=== PATIENT | male | born 1945 | race Caucasian/White ===

== ENCOUNTER → 2016-11-30 | Outpatient (CLI) | payer MEDICARE ==
[~2016-11-30] MED LIST: ASCA500 PO; B-COCAP2 PO; B-COTAB18 PO; CEPH500C2 PO; CMD1 PO; COEN1CAP28 PO; EFF375 PO; FRRG PO; GARLTAB3 PO; GREEN TEA PO; HYDR-5688 PO; MISCCAP PO; NAPR1TAB9 PO; OMEG10007 PO; PRISTIQ PO; Q10 PO; RESERVATROL PO; [UNRECOGNIZED DRUG - OTHER] PO; [UNRECOGNIZED DRUG - OTHER] PO
[2016-11-30 09:33] LABS: BASO ABS # 0.06 K/uL (0-0.2); COMPLETE YES; EOS % 4.1 %; IG% 0.8 %; LYMPH % 27.7 %; LYMPH ABS # 1.64 K/uL (1.2-3.4); MEAN CORPUSCULAR HGB CONC 34.5 g/dl (32-36); MEAN PLATELET VOLUME 10.1 fL (7.4-10.4); MONO % 4.9 %; NEUT % 61.5 %; PLATELET COUNT 159 K/uL (130-400); RED BLOOD COUNT 4.83 M/uL (4.7-6.1); WHITE BLOOD COUNT 5.91 K/uL (4.8-10.8)
[2016-11-30 09:49] LABS: ALT/SGPT 27 U/L (12-78); AST/SGOT 20 U/L (15-37); BLOOD UREA NITROGEN 18 mg/dl (7-18); BUN/CREATININE RATIO 18.2 (10-20); CARBON DIOXIDE 28 mmol/L (21-32); CHLORIDE 108 mmol/L (98-107); CHOLESTEROL 166 mg/dl (0-200); CREATININE 0.97 mg/dl (0.60-1.40); GLUCOSE 120 mg/dl (70-99); POTASSIUM 4.2 mmol/L (3.5-5.1); SODIUM 141 mmol/L (136-145); TRIGLYCERIDES 107 mg/dl (0-150); VERY LOW DENSITY LIPOPROT CALC 21 mg/dl
[2016-11-30 09:56] LABS: ESTIMATED AVERAGE GLUCOSE 114 mg/dl; HA1C FLAG Normal (Normal)
[2016-11-30 09:58] LABS: ALB/GLOB RATIO 1.2 (0.9-2); ALKALINE PHOSPHATASE 62 U/L (45-117); HDL CHOLESTEROL 41 mg/dl; LDL CHOLESTEROL CALCULATED 104 mg/dl; TOTAL IRON BINDING CAPACITY 345 mcg/dl (250-450); URIC ACID 5.3 mg/dl (2.6-7.2)
--- NOTE | 2016-12-24 07:11 | CODING QUERY MEDICAL NECESSITY ---
CQSUPPORTING DIAGNOSIS NEEDED A supporting diagnosis is required for the test/procedure performed on this patient in order for us to be reimbursed by the patient's insurance. Please provide a supporting diagnosis for the following test/procedure listed below next to the test name along with your signature. *If there is no additional diagnosis for this patient that would support the following test/procedure please document that below next to the test/procedure. Test(s)/Procedure(s) that require a supporting diagnosis: DOS 11/30/16 PROSTATE SPECIFIC Provider Signature: Date: Thank you Maddie Leon [employer] Once completed, please kindly fax back to [phone] For questions please call [phone]
== END | disposition home or self-care (01) ==
LOC: C.LAB 08:21
PROVIDERS: ATTEND Family Medicine
DX: R73.09 Other abnormal glucose (principal); E55.9 Vitamin D deficiency, unspecified; D51.9 Vitamin B12 deficiency anemia, unspecified; E78.9 Disorder of lipoprotein metabolism, unspecified; R53.83 Other fatigue; N40.0 Benign prostatic hyperplasia without lower urinary tract symptoms

== ENCOUNTER 2017-05-06 10:26 | Observation (INO) | payer MEDICARE ==
[2017-04-18 08:07] VITALS: BMI 28.0
--- NOTE | 2017-04-18 08:42 | PAT Medication Instructions ---
Service Date Apr 18, 2017. Current Home Medication List B-Complex Vitamins (Vitamin B Complex), 1 TAB PO QAM Coenzyme Q10 (Ubidecarenone) (Co Q10), 1 CAP PO QAM Fish Oil ([place]-3), 1 CAP PO Q2D Misc Natural Products (Prostate Therapy Complex), 1 CAP PO QAM Naproxen (Aleve), 220 MG PO Q12 PRN for Pain [Garlic], 1 TAB PO 3XWK [Pristiq], 25 MG PO QAM Medication Instructions For Your Scheduled Surgery - Hold the following medication per your surgeon's instructions: Naproxen (Aleve), 220 MG PO Q12 PRN for Pain Hold the following medications 2 weeks prior to surgery--Hold starting Saturday: Fish Oil ([place]-3), 1 CAP PO Q2D [Garlic], 1 TAB PO 3XWK Coenzyme Q10 (Ubidecarenone) (Co Q10), 1 CAP PO QAM - Hold the following medications the morning of surgery: B-Complex Vitamins (Vitamin B Complex), 1 TAB PO QAM Misc Natural Products (Prostate Therapy Complex), 1 CAP PO QAM - Take the following medications the morning of surgery with a sip of water: [Pristiq], 25 MG PO QAM If you have any questions please call us at [phone] or [phone] or [phone]
[2017-04-18 10:39] LABS: BASO % 0.7 %; BASO ABS # 0.04 K/uL (0-0.2); COMPLETE YES; EOS % 1.4 %; HEMATOCRIT 42.7 % (42-52); IG% 0.5 %; LYMPH % 21.4 %; LYMPH ABS # 1.22 K/uL (1.2-3.4); MEAN CELL VOLUME 86.1 fL (80-100); MEAN CORPUSCULAR HEMOGLOBIN 30.4 pg (25-34); MEAN CORPUSCULAR HGB CONC 35.4 g/dl (32-36); MEAN PLATELET VOLUME 10.5 fL (7.4-10.4); MONO % 4.9 %; NEUT % 71.1 %; PLATELET COUNT 157 K/uL (130-400); RED BLOOD COUNT 4.96 M/uL (4.7-6.1); WHITE BLOOD COUNT 5.71 K/uL (4.8-10.8)
[2017-04-18 10:40] LABS: BUN/CREATININE RATIO 17.4 (10-20); CALCIUM 9.1 mg/dl (8.5-10.1); CREATININE 1.1 mg/dl (0.60-1.40); POTASSIUM 4.6 mmol/L (3.5-5.1)
[2017-05-06] VITALS (7 sets, daily range): BP systolic 138–170; BP diastolic 57–80; PULSE 65–88; TEMP 36.4–37; O2SAT 95–99; Ht 177.8 cm; Wt 85.0 kg
[~2017-05-06] VITALS: Ht 177.8 cm; Wt 85.0 kg
[~2017-05-06 10:26] MED LIST changes: -ASCA500 PO; +ATROPINE SULFATE 0.1 MG/ML 5ML SYR IV PRN; -B-COCAP2 PO; +CEFAZOLIN 2000MG IV PUSH 10 ML IV SCH; -CEPH500C2 PO; -CMD1 PO; -EFF375 PO; +EpHEDrine SULFATE INJ 50 MG/ML AMP IV PRN; -FRRG PO; -GREEN TEA PO; -HYDR-5688 PO; +HYDROmorphone INJ 1 MG/ML SYR IV PRN; +LACTATED RINGER'S 1000ML 1,000 ML IV SCH; +MISSING PHYSICIAN SIGNATURE ON ORDER SCH; +ONDANSETRON INJ 2 MG/ML 2 ML VIAL IV PRN; +PHENYLEPHRINE 100MCG/ML 5ML SYR IV PRN; -Q10 PO; -RESERVATROL PO; -[UNRECOGNIZED DRUG - OTHER] PO; -[UNRECOGNIZED DRUG - OTHER] PO
[2017-05-06] MEDS ORDERED: FENTANYL CITRATE INJ 50 MCG/1 ML 2 ML VIAL ONE ×2 (11:56→14:51)
[2017-05-06] MEDS ORDERED: PROPOFOL IV EMULSION 10 MG/ML 20 ML VIAL IV ONE (11:56)
[2017-05-06] MEDS ORDERED: ONDANSETRON INJ 2 MG/ML 2 ML VIAL ONE (11:56)
[2017-05-06] MEDS ORDERED: NEOSTIGMINE METHYLSULFATE 5 MG/5 ML SYR ONE (11:56)
[2017-05-06] MEDS ORDERED: MIDAZOLAM HCL 1 MG/ML 2ML VIAL ONE (11:56)
[2017-05-06] MEDS ORDERED: LIDOCAINE HCL 2% 2 ML VIAL (20MG/ML) ONE (11:56)
[2017-05-06] MEDS ORDERED: GLYCOPYRROLATE INJ 0.2 MG/ML VIAL ONE (11:56)
[2017-05-06] MEDS ORDERED: DEXAMETHASONE SOD INJ 4 MG/ML VIAL ONE (11:56)
--- NOTE | 2017-05-06 12:31 | History & Physical Bridge Note ---
H&P Re-Evaluation Bridge Note: I have examined the patient, reviewed the History & Physical and in the interval since the performance of the History & Physical I have noted the following changes of clinical significance: No changes noted
[2017-05-06] MEDS ORDERED: LIDOCAINE HCL 1% 20 ML VIAL ONE (12:36)
[2017-05-06] MEDS ORDERED: CEFAZOLIN SOD 1 GM VIAL ONE (12:36)
[2017-05-06] MEDS ORDERED: BUPIVACAINE 0.5 % 5 MG/1 ML MPF 30ML VIAL ONE (12:37)
[2017-05-06] MEDS ORDERED: ROCURONIUM BROMIDE 10 MG/ML 5 ML VIAL IV ONE (13:40)
--- NOTE | 2017-05-06 14:08 | [facility] Operative Report ---
Operative Report Operative Date May 06, 2017. Pre-Operative Diagnosis Right inguinal hernia Post-Operative Diagnosis Right inguinal hernia Procedure(s) Performed Open right inguinal hernia repair Surgeon Dr. Herrera Locomotive Oiler Surgeon(s) Howie Goldstein PA-C Findings very large indirect scrotal hernia Specimens A: Lipoma Anesthesia gen Complication(s) None Disposition Recovery Room / PACU I attest to the content of the Intraoperative Record and any orders documented therein. Any exceptions are noted below.
[2017-05-06] MEDS ORDERED: HYDROCODONE/ACETAMOPHEN 5/325MG TAB PO PRN (14:15)
[2017-05-06] MEDS ORDERED: MoRPHine SULFATE 2 MG/ML CARP IV PRN (14:15)
[2017-05-06] MEDS ORDERED: MoRPHine SULFATE 4 MG/ML 1 ML CARP\\VIAL IV PRN (14:15)
[2017-05-06] MEDS ORDERED: PROMETHAZINE HCL INJ 25 MG in SODIUM CHLORIDE 0.9% 50ML 50 ML IV PRN (14:15)
[2017-05-06] MEDS ORDERED: ONDANSETRON INJ 2 MG/ML 2 ML VIAL IV PRN (14:15)
--- NOTE | 2017-05-06 14:25 | OPERATIVE REPORT ---
DATE OF OPERATION: 05/06/2017 NAME OF OPERATION: Open right inguinal hernia repair. PREOPERATIVE DIAGNOSIS: Large right inguinal hernia. POSTOPERATIVE DIAGNOSIS: Same with indirect defect. STAFF SURGEON: Dr. Willy Herrera. NICKEL PLATER: Malcom Goldstein PA-C ANESTHESIA: General. DESCRIPTION OF PROCEDURE: The patient was brought into the operating room and placed on the operating table in the supine position. Guzman catheter was placed. Orogastric tube was placed. His lower abdomen was prepped and draped in the usual fashion. The patient had a large scrotal hernia, which actually reduced when supine and under anesthesia. 0.5% plain Marcaine was used to anesthetize the skin and subcutaneous tissue and also the deep tissue at the end of the procedure. Incision was made parallel to the inguinal ligament, carrying dissection down, identifying the external oblique fibers, incising them along their length to the external ring and mobilizing the cord structures. The patient had a very large thick walled chronic hernia sac, which went down into the scrotum. This was dissected free and transected. It was then oversewn using 2-0 Ethibond suture and then reduced. He also had a large lipoma of the cord, which was excised and ligated using 2-0 silk suture. The internal ring was then reinforced using a large mesh plug, secured to surrounding tissue using 2-0 Ethibond suture, then a large mesh patch placed around the cord structures into the floor of the canal, secured to surrounding tissue using 2-0 Ethibond suture. The external oblique fibers were closed over the mesh and around the cord structures using 2-0 Ethibond suture. The site was anesthetized using 0.5% plain Marcaine and then the subcutaneous tissue reapproximated using 2-0 plain catgut suture and then the skin reapproximated using 4-0 nylon and Steri-Strips. Dressing applied and the patient transferred to the recovery room in stable condition. Plan was to remove the Guzman catheter prior to going up to the regular nursing floor. I attest to the content of the Intraoperative Record and any orders documented therein. Any exception s are noted below.
--- NOTE | 2017-05-06 14:43 | Anesthesiology Progress Note ---
Anesthesia Post Op Note Date & Time May 06, 2017 at 14:43 Vital Signs Pain Intensity: 0 Vital Signs Past 12 Hours Date Time Temp Pulse Resp B/P (MAP) Pulse Ox O2 Delivery O2 Flow Rate FiO2 05/06/17 14:20 54 16 157/77 100 Oxymask 10 05/06/17 14:10 36.9 70 16 156/74 99 Oxymask 10 05/06/17 10:47 37 65 18 143/66 (91) 97 Room Air Notes Mental Status: alert / awake / arousable, participated in evaluation Pt Amnestic to Procedure: Yes Nausea / Vomiting: adequately controlled Pain: adequately controlled Airway Patency, RR, SpO2: stable & adequate BP & HR: stable & adequate Hydration State: stable & adequate Anesthetic Complications: no major complications apparent
[2017-05-06] MEDS: FENTANYL CITRATE INJ 50 MCG/1 ML 2 ML VIAL IV PRN ×3 (14:52→15:03)
--- NOTE | 2017-05-06 14:54 | Discharge Instructions ---
Discharge Instructions Date of Service May 06, 2017. Admission Reason for Admission: Right Inguinal Hernia Discharge Discharge Diagnosis / Problem: Rt inguinal hernia Discharge Goals Goal(s): Decrease discomfort, Improve function, Improve disease control Activity Recommendations Activity Limitations: as noted below Lifting Limitations: no more than 25 pounds Exercise/Sports Limitations: until after follow-up appointment May Resume Sexual Activity: after follow-up appointment Shower/Bathe: tomorrow Driving or Machine Use: wait 4-5 days SPECIAL CARE INSTRUCTIONS: * Cover incisions and change daily for comfort/drainage. * Leave steri strips in place * May use ibuprofen for pain as tolerated. * Expect some swelling and bruising. Call your doctor if: * Temperature above 101 degrees * Pain not relieved by pain medicine ordered * There is increased drainage or redness from any incision * You have any unanswered questions or concerns [phone]. FOLLOW UP VISIT: If not already scheduled, please call the office for a follow-up visit. for next week- some suture removal OFFICE PHONE NUMBER: Dr. Herrera Office . Current Hospital Diet Patient's current hospital diet: Regular Diet Discharge Diet Recommended Diet: Regular Diet Procedures Procedures Performed: Open right inguinal hernia repair Pending Studies Studies pending at discharge: no Medical Emergencies . Who to Call and When: Medical Emergencies: If at any time you feel your situation is an emergency, please call 911 immediately. . Non-Emergent Contact Non-Emergency issues call your: Primary Care Provider, Surgeon . "Provider Documentation" section prepared by Willy Herrera. . VTE Core Measure Inpt VTE Proph given/why not?: SCD's
[2017-05-06] MEDS ORDERED: IV FLUIDS COMPLETED PRN (15:00)
[2017-05-06] MEDS ORDERED: PROMETHAZINE HCL INJ 12.5 MG in SODIUM CHLORIDE 0.9% 50ML 50 ML IV PRN (15:15)
[2017-05-06] MEDS ORDERED: LACTATED RINGER'S 1000ML 1,000 ML IV SCH (16:30)
[2017-05-06] MEDS: CEFAZOLIN IV 2,000 MG in SYRINGE 0 ML IV SCH ×2 (18:28→23:30)
[2017-05-06] MEDS ORDERED: COUGH DROP (SUGAR FREE) LOZ 24 LOZ/1 BOX PO PRN (18:45)
[2017-05-06] MEDS ORDERED: NURSING DECISION MEDICATION ORDER SCH (18:45)
[2017-05-06] MEDS ORDERED: HydrALAZINE HCL 20 MG/ML VIAL IV. PRN (19:00)
[2017-05-06] MEDS ORDERED: ZOLPIDEM TARTRATE 5 MG TAB PO PRN (19:00)
--- NOTE | 2017-05-06 19:01 | Medical Consult ---
Consultation Date of Consultation: May 06, 2017. Attending Physician: Willy Herrera M.D. Reason for Consultation: Medical management History of Present Illness This is a 72 y/o male with a history of BPH, anxiety, depression, and insomnia who presents s/p open right inguinal hernia repair with Dr. Herrera on 05/06 for medical management. The patient reports feeling well postop with minimal soreness in the right inguinal area. He reports eating and urinating well postoperatively. He has not yet passed gas or had a bowel movement. He states that he typically takes Ambien 5 mg at nighttime for his insomnia and is requesting to receive this in the hospital. The patient denies fevers, chills, sweats, chest pain, palpitations, claudication, cough, wheezing, shortness of breath, nausea, vomiting, abdominal pain, dysuria, hematuria, urinary retention , paralysis, weakness, numbness and tingling. Past Medical/Surgical History BPH Anxiety Depression Insomnia Family History Non-contributory Social History Smoking Status: Former Smoker (quit 37 years ago) Smokeless Tobacco Use: No Alcohol Use: socially (wine with dinner) Drug Use: none Marital Status: Housing Status: lives with family (son and daughter in law) Occupation Status: retired Allergies Coded Allergies: Iodine (Verified Allergy, Severe, THROAT SWELLING, HIVES, 05/06/17) Shellfish (Verified Allergy, Severe, ANAPHYLACTIC SHOCK, HIVES,SWELLING, 05/06/17) Apple (Verified Allergy, Intermediate, HIVES, 05/06/17) Castañeda (Verified Allergy, Intermediate, HIVES, 05/06/17) [place] (Verified Allergy, Intermediate, HIVES, 05/06/17) Oxycodone (Verified Adverse Reaction, Unknown, NAUSEA/VOMITING, 05/06/17) Current Inpatient Medications Current Inpatient Medications Medications (Trade) Dose Ordered Sig/Rfances Route Start Time Stop Time Status Last Admin Dose Admin Lactated Ringer's 1,000 ml @ 15 mls/hr Q24H IV 05/06/17 06:00 05/07/17 05:59 Lactated Ringer's 1,000 ml @ 50 mls/hr Q20H IV 05/06/17 16:30 05/06/17 20:00 05/06/17 16:35 50 MLS/HR Cefazolin Sodium 2000 mg/Syringe 10 ml @ 2.5 mls/min Q6 IV 05/06/17 18:00 05/07/17 12:03 05/06/17 18:28 2.5 MLS/MIN Acetaminophen/ Hydrocodone Bitart ([place] 5/325 Tab) 1 tab Q4 PRN PO 05/06/17 14:15 05/20/17 14:14 Acetaminophen/ Hydrocodone Bitart ([place] 5/325 Tab) 2 tab Q4 PRN PO 05/06/17 14:15 05/20/17 14:14 Morphine Sulfate (MoRPHine SULFATE INJ) 2 mg Q4H PRN IV 05/06/17 14:15 05/20/17 14:14 Morphine Sulfate (MoRPHine SULFATE INJ) 4 mg Q4H PRN IV 05/06/17 14:15 05/20/17 14:14 Promethazine HCl 25 mg/Sodium Chloride 51 ml @ 204 mls/hr Q6H PRN IV 05/06/17 14:15 06/05/17 14:14 Senna/Docusate Sodium (Senokot S Tab) 1 tab BID PO 05/06/17 21:00 06/05/17 20:59 Magnesium Hydroxide (Milk Of Magnesia Susp) 30 ml BID PO 05/06/17 21:00 06/05/17 20:59 Ondansetron HCl (Zofran Inj) 4 mg Q6H PRN IV 05/06/17 14:15 06/05/17 14:14 Miscellaneous (Iv Fluids Completed) 1 ea PRN PRN N/A 05/06/17 15:00 05/06/18 14:59 Promethazine HCl 12.5 mg/Sodium Chloride 50.5 ml @ 204 mls/hr Q6H PRN IV 05/06/17 15:15 06/05/17 15:14 Menthol (Nice Emanuel) 1 emanuel PRN PRN PO 05/06/17 18:45 06/05/17 18:44 05/06/17 18:52 1 EMANUEL Review of Systems See HPI for pertinent positives and negatives. All other systems reviewed and negative. Physical Exam Date Time Temp Pulse Resp B/P (MAP) Pulse Ox O2 Delivery O2 Flow Rate FiO2 05/06/17 18:52 36.8 88 18 169/80 (109) 97 Nasal Cannula 05/06/17 17:32 36.6 74 18 157/77 (103) 96 Room Air 05/06/17 16:32 36.7 71 18 169/57 (94) 99 Room Air 05/06/17 16:00 36.4 66 16 170/73 (105) 97 Room Air 05/06/17 15:30 36.6 75 16 164/79 (107) 95 Room Air 05/06/17 15:30 36.6 75 16 164/79 95 Room Air 05/06/17 15:10 36.4 72 16 151/72 97 Room Air 05/06/17 15:00 36.4 56 16 146/74 96 Room Air 05/06/17 14:50 71 16 151/76 96 Room Air 05/06/17 14:40 60 16 147/75 97 Room Air 05/06/17 14:30 56 16 145/76 100 Oxymask 10 05/06/17 14:20 54 16 157/77 100 Oxymask 10 05/06/17 14:10 36.9 70 16 156/74 99 Oxymask 10 05/06/17 10:47 37 65 18 143/66 (91) 97 Room Air General appearance: Well-developed, well-nourished, no apparent distress Head: Normocephalic, atraumatic Eyes: Normal inspection, PERRL, EOMI ENT: Normal ENT inspection, hearing grossly normal, pharynx normal Neck: Supple, no JVD, trachea midline Respiratory/Chest: Lungs clear to auscultation, normal breath sounds, no respiratory distress Cardiovascular: Regular rate & rhythm, no gallop, no murmur Abdomen/GI: +Right inguinal area covered in gauze. Lower quadrants TTP. Normal bowel sounds, soft Extremities/Musculoskeletal: Normal inspection, no calf tenderness, no pedal edema Neurological/Psych: +Depressed affect. Alert, oriented x 3 Skin: Normal color, warm/dry, no rash Assessment & Plan 72 y/o male with a history of BPH, anxiety, depression, and insomnia who presents s/p open right inguinal hernia repair with Dr. Herrera on 05/06 for medical management. S/p open right inguinal hernia repair--POD #0 -Pain management, DVT prophylaxis, and PT/OT as per primary team BPH -Pt takes super beta prostate supplement -Urinating without difficulty postop after Guzman removed Anxiety, depression, insomnia--pt states that he has lost 4 family members, including his , in the last year -Continue Pristiq 25 mg PO qd. This is non-formulary, pt has this with him -Ambien 5 mg PO hs prn insomnia Elevated blood pressure--denies h/o HTN, BP typically well controlled -Cover with hydralazine 10 mg IV q6h prn SBP >180 Thank you for this consultation. We will continue to follow. i personally examined pt and verified all maldonado points w Melissa Reza PAC a bit of pain - nothing terrible but thinking it's probably time to ask for pain meds no other acute complaints vitals noted nad breathing unlabored elevated BP - follow abdominal pain post op - pain meds as ordered by surgery insomnia - chronically takes ambien - and was quite insistent about making sure he had it- so it has been ordered, however cautioned him to wait at least ~30- 60mins after pain meds before asking for ambien to ensure pain meds don't cause synergistic sedation
[2017-05-06 19:16] LABS: MEAN CELL VOLUME 87.1 fL (80-100); MEAN CORPUSCULAR HEMOGLOBIN 29.7 pg (25-34); MEAN CORPUSCULAR HGB CONC 34.1 g/dl (32-36); MEAN PLATELET VOLUME 10.1 fL (7.4-10.4); PLATELET COUNT 148 K/uL (130-400); RED BLOOD COUNT 5.05 M/uL (4.7-6.1); WHITE BLOOD COUNT 7.69 K/uL (4.8-10.8)
[2017-05-06 19:41] LABS: BUN/CREATININE RATIO 11.7 (10-20); CALCIUM 8.7 mg/dl (8.5-10.1); CREATININE 1.14 mg/dl (0.60-1.40); POTASSIUM 4.4 mmol/L (3.5-5.1)
[2017-05-06] MEDS ORDERED: HYDROCODONE/ACETAMOPHEN 5/325MG TAB PO ONE (20:10)
[2017-05-06] MEDS: MAGNESIUM HYDROXIDE SUSP 30 ML UDC PO SCH (21:00)
[2017-05-06] MEDS: DOCUSATE SODIUM/SENNA 50/8.6MG TAB PO SCH (21:02)
[2017-05-07] MEDS: HYDROCODONE/ACETAMOPHEN 5/325MG TAB PO PRN ×2 (03:45→09:23)
[2017-05-07 03:47] VITALS: BP 130/70; PULSE 59; TEMP 36.5; O2SAT 98
[2017-05-07] MEDS ORDERED: HYDR-5688 PO (05:22)
[2017-05-07] MEDS ORDERED: CEPH500C2 PO (05:22)
[2017-05-07] MEDS: CEFAZOLIN IV 2,000 MG in SYRINGE 0 ML IV SCH (05:46)
[2017-05-07 07:05] VITALS: BP 145/69; PULSE 70; TEMP 36.8; O2SAT 99
--- NOTE | 2017-05-07 07:12 | DISCHARGE SUMMARY ---
PRINCIPAL DIAGNOSIS: Large right inguinal hernia. PROCEDURES: The patient underwent open right inguinal hernia repair. HISTORY OF PRESENT ILLNESS: The patient is a 72-year-old male who has had progressive increase in size of a right inguinal hernia. HOSPITAL COURSE: The patient was brought in the hospital on 05/06/2017 where he underwent elective open right inguinal hernia repair. He had a very large right indirect hernia sac extending into the scrotum. He did very well with the operation and has done well overnight with minimal pain and is felt stable for discharge home today. He will be seen in the surgical clinic within 1 week.
[2017-05-07] MEDS: MAGNESIUM HYDROXIDE SUSP 30 ML UDC PO SCH (07:42)
[2017-05-07 08:11] VITALS: BP 145/69; PULSE 70; TEMP 36.8; O2SAT 99
[2017-05-07] MEDS: DOCUSATE SODIUM/SENNA 50/8.6MG TAB PO SCH (08:41)
== END 2017-05-07 10:30 | disposition home or self-care (01) ==
LOC: C.ACU 10:26 → C.MSW 10:35 → ENRESERV 15:08
PROVIDERS: ADMIT Surgery; ATTEND Surgery
DX: K40.90 Unilateral inguinal hernia, without obstruction or gangrene, not specified as recurrent (principal); M19.90 Unspecified osteoarthritis, unspecified site; Z85.828 Personal history of other malignant neoplasm of skin; Z96.642 Presence of left artificial hip joint

== ENCOUNTER → 2017-10-22 | Outpatient (CLI) | payer MEDICARE ==
[~2017-10-22] MED LIST changes: -ATROPINE SULFATE 0.1 MG/ML 5ML SYR IV PRN; -CEFAZOLIN 2000MG IV PUSH 10 ML IV SCH; +CEPH500C2 PO; -EpHEDrine SULFATE INJ 50 MG/ML AMP IV PRN; +HYDR-5688 PO; -HYDROmorphone INJ 1 MG/ML SYR IV PRN; -LACTATED RINGER'S 1000ML 1,000 ML IV SCH; -MISSING PHYSICIAN SIGNATURE ON ORDER SCH; -ONDANSETRON INJ 2 MG/ML 2 ML VIAL IV PRN; -PHENYLEPHRINE 100MCG/ML 5ML SYR IV PRN
[2017-10-22 09:33] LABS: BASO % 0.9 %; BASO ABS # 0.04 K/uL (0-0.2); EOS % 2.6 %; EOS ABS # 0.12 K/uL (0-0.5); HEMOGLOBIN 14.4 g/dL (14.0-18.0); IG# 0.04 K/uL (0.00-0.02); LYMPH % 34.3 %; LYMPH ABS # 1.58 K/uL (1.2-3.4); MEAN CELL VOLUME 85.7 fL (80-100); MEAN CORPUSCULAR HEMOGLOBIN 29.4 pg (25-34); MEAN CORPUSCULAR HGB CONC 34.3 g/dl (32-36); MEAN PLATELET VOLUME 10.1 fL (7.4-10.4); MONO % 6.5 %; NEUT % 54.8 %; NEUT ABS # 2.52 K/uL (1.4-6.5); PLATELET COUNT 113 K/uL (130-400); RED CELL DISTRIBUTION WIDTH CV 13.4 % (11.5-14.5); RED CELL DISTRIBUTION WIDTH SD 42.1 fL (36.4-46.3)
[2017-10-22 09:41] LABS: HEMOGLOBIN A1C 6.2 % (4.5-5.6)
[2017-10-22 09:46] LABS: ALBUMIN 4.1 gm/dl (3.4-5.0); ALT/SGPT 24 U/L (12-78); AST/SGOT 16 U/L (15-37); BLOOD UREA NITROGEN 15 mg/dl (7-18); CALCIUM 8.6 mg/dl (8.5-10.1); CARBON DIOXIDE 30 mmol/L (21-32); CHOLESTEROL 165 mg/dl (0-200); CREATININE 0.96 mg/dl (0.60-1.40); GLUCOSE 132 mg/dl (70-99); SODIUM 141 mmol/L (136-145); TRANSFERRIN 302 mg/dl (200-360); URIC ACID 4.8 mg/dl (2.6-7.2)
[2017-10-22 09:54] LABS: ALKALINE PHOSPHATASE 72 U/L (45-117); LDL CHOLESTEROL CALCULATED 98 mg/dl
== END | disposition home or self-care (01) ==
LOC: C.LAB 07:41
PROVIDERS: ATTEND Family Medicine
DX: E88.81 Metabolic syndrome and other insulin resistance (principal); E55.9 Vitamin D deficiency, unspecified; D51.9 Vitamin B12 deficiency anemia, unspecified; E78.9 Disorder of lipoprotein metabolism, unspecified; R53.83 Other fatigue

== ENCOUNTER 2018-10-13 12:16 | Inpatient (IN) ==
[2018-10-13] MEDS ORDERED: PROMETHAZINE 25 MG/51 ML BAG IV STA (12:37)
[2018-10-13] MEDS ORDERED: HYDROmorphone INJ 0.5 MG/0.5 ML SYR IV STA (12:37)
[2018-10-13] MEDS ORDERED: SODIUM CHLORIDE 0.9% 500 ML IV SCH (12:45)
[2018-10-13 13:19] LABS: Eosinophils # (auto) 0.04 K/uL (0-0.5); Eosinophils % (auto) 0.6 %; Hematocrit (blood only) 32.1 % (42-52); Hemoglobin 10.9 g/dL (14.0-18.0); Immature Granulocytes # (auto) 0.01 K/uL (0.00-0.02); Immature Granulocytes % (auto) 0.2 %; Lymphocytes # (auto) 0.71 K/uL (1.2-3.4); Lymphocytes % (auto) 10.7 %; Mean Corpuscular Volume 83.6 fL (80-100); Mean Platelet Volume 10.5 fL (7.4-10.4); Monocytes # (auto) 0.07 K/uL (0.11-0.59); Monocytes % (auto) 1.1 %; Neutrophils % (auto) 87.4 %; Platelet Count 157 K/uL (130-400); RDW Coefficient of Variation 13.2 % (11.5-14.5); Red Blood Count 3.84 M/uL (4.7-6.1); White Blood Count 6.63 K/uL (4.8-10.8)
[2018-10-13] MEDS: SODIUM CHLORIDE 0.9% 1000ML 1,000 ML IV SCH (13:21)
[2018-10-13 13:39] LABS: Albumin Level 3.2 gm/dl (3.4-5.0); BUN Creatinine Ratio 23.2 (10-20); Calcium 8.7 mg/dl (8.5-10.1); Creatinine Clr Calc Pharmacy 108.7 ml/min; Est GFR (African American) 117.2; Est GFR (Non-African American) 101.1; Potassium 3.1 mmol/L (3.5-5.1)
[2018-10-13 13:42] LABS: Albumin Globulin Ratio 0.9 (0.9-2); Bilirubin,Total 0.9 mg/dl (0.2-1); Globulin 3.7 gm/dl (2.5-4.0); Total Protein 6.9 gm/dl (6.4-8.2)
[2018-10-13] MEDS ORDERED: DiphenhydrAMINE HCL 50 MG/ML VIAL IV STA (14:28)
[2018-10-13] MEDS ORDERED: DiphenhydrAMINE HCL 50 MG/ML VIAL ONE (14:28)
[2018-10-13] MEDS ORDERED: IOVERSOL 100ml IV PRN (14:35)
--- NOTE | 2018-10-13 15:02 | CT Scan Report ---
CT abd pelvis IV con only CLINICAL HISTORY: pancreatic CA, vomiting, ?duodenal obs COMPARISON STUDY: 09/14/2018 TECHNIQUE: The patient was scanned in a dynamic helical fashion during intravenous administration of 94 cc of Optiray 320. A dose lowering technique was utilized adhering to the principles of ALARA. CT DOSE: 648.44 mGycm FINDINGS: Lower chest: There are partially visualized right upper and middle lobe airspace opacities, suspiciou s for a pneumonia. Liver: No focal hepatic masses are visualized. There is no significant ductal dilatation. There is eq uivocal hepatic cirrhosis. The portal vein appears patent. Gallbladder: The gallbladder is distended. Multiple calculi are visualized. Spleen: The spleen is borderline enlarged. There are perisplenic and perigastric varices present. Pancreas: There is a 6 cm pancreatic tail mass versus massively dilated duct secondary to a more prox imal pancreatic lesion. There is splenic vein occlusion. Adrenal glands: Unremarkable. Kidneys: There is symmetric renal cortical enhancement. The kidneys are normal in size without hydron ephrosis. Bowel: There is marked gastric distention. There is a soft soft tissue thickening at the level the ga stric antrum/duodenal bulb resulting in gastric outlet obstruction. There is an 11 cm hypodense mass/ fluid collection, located inferior to the stomach. This appears solid the prior study, and therefore this may represent necrotic neoplasm. There is mild nonspecific colonic wall thickening. Peritoneum: There is low volume ascites. There are multiple mildly enlarged mesenteric lymph nodes. T here is an anterior midline spiculated mesenteric mass measuring 31 mm. This appears larger on the pr ior study and is consistent with metastatic disease. Vasculature: The abdominal aorta is normal in course and caliber. There is splenic vein occlusion upp er abdominal varices. Adenopathy: There are multiple enlarged mesenteric lymph nodes. Pelvic viscera: The prostate is enlarged. There are postsurgical changes of a left hip arthroplasty. There are postsurgical changes of prior inguinal hernia repairs. Skeletal structures: No destructive osseous lesions are seen. IMPRESSION: 1. Soft tissue thickening/mass at the level of the gastric antrum/duodenal bulb with suspected second fab gastric outlet obstruction 2. 6 cm hypodense pancreatic body and tail, consistent with a mass or ductal dilatation secondary to a more proximal lesion. 3. 11 cm hypodense mass/fluid collection abutting the undersurface of the stomach. This was previousl y suspected to represent a hematoma. This therefore may represent a liquefied hematoma. 4. 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 Low volume ascites 6. Cholelithiasis. Distended gallbladder 7. Enlarged mesenteric lymph nodes. Anterior mesenteric/omental 31 mm mass consistent with metastatic disease 8. Partially visualized right middle and upper lobe pulmonary airspace opacity suspicious for pneumon ia Electronically signed by: James Ann M.D. 10/13/2018 3:01 PM
[2018-10-13] MEDS ORDERED: BENZOCAINE/TETRACAIN/BUTAM CAN 200 APPLN/20 GM CAN EXT PRN (15:44)
[2018-10-13] MEDS ORDERED: BENZOCAIN/TETRACA/BUTAM SPRAY 200 APPLN/20 GM SPRY EXT ONE (16:01)
--- NOTE | 2018-10-13 16:29 | Emergency Department Note ---
Entered by Ashley Jaquez acting as a scribe for Ruifna Rock MD History of Present Illness General Chief complaint: Dehydration Stated complaint: DEHYDRATED, CANT KEEP FOOD DOWN Source: patient and family History of Present Illness Provider complaint: vomiting Onset (ago): day(s) 3 Location: left and right Pain Consistency: + intermittent Maximum Pain Intensity: 5 Quality: + other (vomiting) Associated symptoms: + denies other symptoms (denies abdominal pain and diarrhea, blood in vomit); no chest pain, no fever/chills and no shortness of breath The patient is a 73 year old male who presents to the Emergency Room with complaints of intermittent vomiting over the last 3 days. Per family, the patient did not have blood in his vomit. He also reports having abdominal pain but denies having diarrhea. He states that he had chemotherapy 3 days ago and had home chemotherapy yesterday. He states that he has been unable to keep fluids down. He denies being febrile or having chest pain or shortness of breath. The patient states that he follows with Dr. Hammonds. Home Medications Home Medications Medication Instructions Recorded Confirmed Type desvenlafaxine succinate [Pristiq] 25 mg PO HS #0 04/18/17 10/13/18 History alprazolam 0.5 mg tablet 0.5 mg PO DIRECTED tab 09/23/18 10/13/18 History dronabinol 5 mg capsule 5 mg PO BID 09/23/18 10/13/[address] 40 mg granules 40 mg PO BID 09/23/18 10/13/18 History delayed-release for susp in packet docusate sodium 100 mg PO DAILY PRN 10/05/18 10/13/18 History Marijuana 1 dose INHALATION UD PRN 10/07/18 10/13/18 History hydrocodone-acetaminophen [[place]] 1 tab PO Q4H #7 tab 10/08/18 10/13/18 Rx fentanyl 1 patch TOPICAL Q72H 10/13/18 10/13/18 History [id number] [[place]] 12,000 units PO TID 10/13/18 10/13/18 History ondansetron HCl 8 mg PO DIRECTED PRN 10/13/18 10/13/18 History prochlorperazine maleate 10 mg PO Q6 PRN 10/13/18 10/13/18 History Allergies Allergy/AdvReac Type Severity Reaction Status Date / Time iodine Allergy Severe THROAT Verified 10/13/18 12:40 SWELLING, HIVES shellfish derived Allergy Severe ANAPHYLACTIC Verified 10/13/18 12:40 SHOCK, HIVES,SWELLING apple Allergy Intermediate HIVES Verified 10/13/18 12:40 neal Allergy Intermediate HIVES Verified 10/13/18 12:40 peach Allergy Intermediate HIVES Verified 10/13/18 12:40 codeine Allergy Unknown Unverified 10/13/18 14:34 oxycodone AdvReac Unknown FEEL GOOFY Verified 10/13/18 12:40 Past Med/Surg History Medical History Anxiety (Chronic) Depression (Chronic) Pancreatic cancer (Chronic) Anemia Attention deficit disorder (ADD) BPH (benign prostatic hyperplasia) Cancer PANCREATIC CANCER SKIN CANCER GERD (gastroesophageal reflux disease) Medical marijuana use Osteoarthritis Surgical History H/O hernia repair (Acute) Bilateral inguinal hernia repair H/O Achilles tendon repair (Resolved) Bilateral H/O left knee surgery (Resolved) Related to "muscles torn off the side" H/O nasal septoplasty (Resolved) History of esophagogastroduodenoscopy (EGD) (Resolved) History of left hip replacement (Resolved) History of tonsillectomy (Resolved) S/P surgical removal of pilonidal cyst (Resolved) Status post right partial knee replacement (Resolved) History of colonoscopy History of tooth extraction Hx of vasectomy Nausea and vomiting after administration of anesthetic agent Family History Mother , 97yo Natural with unknown cause Father , 68yo Brain cancer Sister No problems noted. Son No problems noted. Son No problems noted. Son No problems noted. Review of Systems See HPI for pertinent positives & negatives. and A total of 10 systems reviewed and were otherwise negative Physical Exam Vital Signs Vital Signs - 24 hr 10/15/18 04:03 10/15/18 07:50 10/15/18 11:41 Temperature 36.5 C 36.7 C 36.6 C Temperature Source Oral Oral Oral Pulse Rate [Left Finger] 69 74 67 Respiratory Rate 16 18 18 Respiratory Depth Blood Pressure [Left Arm] 144/67 H 130/69 143/79 H Blood Pressure [Right Arm] Blood Pressure Mean [Left Arm] 92 89 100 Blood Pressure Mean [Right Arm] Blood Pressure Position [Left Arm] Blood Pressure Position [Right Arm] Pulse Oximetry 100 98 99 Oxygen Delivery Method Room Air Room Air Room Air 10/15/18 15:58 10/15/18 19:57 10/15/18 23:45 Temperature 36.4 C L 36.7 C 36.7 C Temperature Source Oral Oral Oral Pulse Rate [Left Finger] 67 71 68 Respiratory Rate 18 18 18 Respiratory Depth Normal Blood Pressure [Left Arm] 115/64 Blood Pressure [Right Arm] 126/79 150/80 H Blood Pressure Mean [Left Arm] 81 Blood Pressure Mean [Right Arm] 94 103 Blood Pressure Position [Left Arm] Lying Blood Pressure Position [Right Arm] Lying Lying Pulse Oximetry 100 100 97 Oxygen Delivery Method Room Air Room Air Room Air Vital signs reviewed. General: Cachectic, chronically ill-appearing male, in no significant distress. HEENT: No scleral icterus, PERRLA, neck supple. Dry mucous membranes. Atraumatic. Cardiovascular: Regular rate and rhythm, no extra sounds. Pulmonary: Clear to auscultation bilaterally, normal work of breathing. Abdomen: Soft, mild diffuse tenderness without rebound or guarding, nondistended, positive bowel sounds. No tympany to percussion. Musculoskeletal: Atraumatic, no peripheral edema. Neurologic: Patient awake alert and oriented x 3, full strength in all 4 extremities. Cranial nerves 2 through 12 grossly intact. Skin: Warm, dry, no rash Course 1232: The patient was evaluated in room B4B, and a complete history and physical examination were performed. 1303: I discussed the patient's case with Dr. Arrington-Gastroenterology who stated that the patient was supposed to see him in the office tomorrow. He stated that the patient's pancreatic mass is likely obstructing the duodeum and that he should be admitted and they will likely stent him. 1324: I updated the patient. He will be getting a CT scan. 1543: I updated the patient who verbalized agreement and understanding of the treatment plan. 1544: The nurses will put an NG tube in the patient. 1546: I discussed the patient's case with Dr. Farhat Gar who will evaluate the patient for further management. Consultations Consultation #1: Dr. Arrington-Gastroenterology Time: 13:03 Consultation #2: Dr. Farhat Gar Time: 15:46 Administered Medications Fentanyl (Duragesic) 25 mcg TD Q72H JUANA Stop: 10/27/18 20:59 Last Admin: 10/13/18 21:16 Dose: Not Given Documented by: [id number] Potassium Chloride/Dextrose/Sod Cl (D5w And 1/2nss + 20meq Kcl) 20 meq in 1,000 mls @ 100 mls/hr IV .Q10H JUANA Stop: 11/12/18 18:20 Last Admin: 10/15/18 20:41 Dose: 100 mls/hr Documented by: [id number] Infusion: 10/15/18 20:41 Dose: 100 mls/hr Documented by: [id number] Admin: 10/15/18 11:15 Dose: 100 mls/hr Documented by: [id number] Infusion: 10/15/18 10:02 Dose: 100 mls/hr Documented by: [id number] Admin: 10/15/18 00:02 Dose: 100 mls/hr Documented by: [id number] Infusion: 10/15/18 00:02 Dose: 100 mls/hr Documented by: [id number] Admin: 10/14/18 15:26 Dose: 100 mls/hr Documented by: [id number] Infusion: 10/14/18 15:24 Dose: 100 mls/hr Documented by: [id number] Admin: 10/14/18 05:24 Dose: 100 mls/hr Documented by: [id number] Infusion: 10/14/18 05:24 Dose: 100 mls/hr Documented by: [id number] Admin: 10/13/18 21:06 Dose: 100 mls/hr Documented by: [id number] Pantoprazole Sodium 40 mg/ (Syringe) 10 mls @ 5 mls/min IV BID JUANA Stop: 11/12/18 20:59 Last Admin: 10/15/18 20:42 Dose: 5 mls/min Documented by: [id number] Admin: 10/15/18 08:50 Dose: 5 mls/min Documented by: [id number] Admin: 10/14/18 20:35 Dose: 5 mls/min Documented by: [id number] Admin: 10/14/18 09:23 Dose: 5 mls/min Documented by: [id number] Admin: 10/13/18 21:07 Dose: 5 mls/min Documented by: [id number] Lorazepam (Ativan) 0.5 mg in 1 mls @ 1 mls/min IV Q4H PRN PRN Reason: Anxiety Stop: 11/12/18 18:20 Last Admin: 10/16/18 03:02 Dose: 1 mls/min Documented by: [id number] Admin: 10/15/18 22:26 Dose: 1 mls/min Documented by: [id number] Admin: 10/15/18 18:20 Dose: 1 mls/min Documented by: [id number] Admin: 10/15/18 14:20 Dose: 1 mls/min Documented by: [id number] Admin: 10/14/18 22:37 Dose: 1 mls/min Documented by: [id number] Admin: 10/14/18 13:18 Dose: 1 mls/min Documented by: [id number] Admin: 10/14/18 01:05 Dose: 1 mls/min Documented by: [id number] Promethazine HCl 12.5 mg/ (Sodium Chloride) 50.5 mls @ 202 mls/hr IV Q6H PRN PRN Reason: Nausea And Vomiting Stop: 11/13/18 04:02 Last Infusion: 10/14/18 20:38 Dose: 0 mls/hr Documented by: [id number] Admin: 10/14/18 20:13 Dose: 202 mls/hr Documented by: [id number] Infusion: 10/14/18 06:30 Dose: 0 mls/hr Documented by: [id number] Admin: 10/14/18 06:13 Dose: 202 mls/hr Documented by: [id number] Ioversol (Optiray 320 100ml) 94 ml IV ONCE PRN PRN Reason: Interaction Checking Stop: 10/17/18 14:34 Last Admin: 10/13/18 14:36 Dose: 94 ml Documented by: [id number] Miscellaneous (Fentanyl Patch Check Placement) 1 ea N/A QS JUANA Stop: 11/13/18 00:00 Last Admin: 10/16/18 00:58 Dose: Not Given Documented by: [id number] Admin: 10/15/18 15:43 Dose: Not Given Documented by: [id number] Admin: 10/15/18 07:03 Dose: Not Given Documented by: [id number] Admin: 10/14/18 23:47 Dose: Not Given Documented by: [id number] Admin: 10/14/18 15:30 Dose: Not Given Documented by: [id number] Admin: 10/14/18 07:36 Dose: Not Given Documented by: [id number] Admin: 10/14/18 00:22 Dose: Not Given Documented by: [id number] Morphine Sulfate (Morphine Sulfate) 1 mg IV Q4H PRN PRN Reason: Pain Stop: 10/27/18 18:20 Last Admin: 10/15/18 21:45 Dose: 1 mg Documented by: [id number] Admin: 10/15/18 02:20 Dose: 1 mg Documented by: [id number] Admin: 10/14/18 20:17 Dose: 1 mg Documented by: [id number] Admin: 10/14/18 03:31 Dose: 1 mg Documented by: [id number] Admin: 10/13/18 21:16 Dose: 1 mg Documented by: [id number] Discontinued Medications Benzocaine/Butamben/Tetracaine HCl (Cetacaine) Confirm Administered Dose 1 appln EXT .STK-MED ONE Stop: 10/13/18 16:02 Last Admin: 10/13/18 16:19 Dose: 1 appln Documented by: [id number] Benzocaine/Butamben/Tetracaine HCl (Cetacaine) 1 appln EXT ONE ONE Stop: 10/15/18 21:04 Last Admin: 10/15/18 22:42 Dose: 1 appln Documented by: [id number] Diphenhydramine HCl (Benadryl) 50 mg IV NOW STA Stop: 10/13/18 14:29 Last Admin: 10/13/18 14:33 Dose: 50 mg Documented by: [id number] Diphenhydramine HCl (Benadryl) Confirm Administered Dose 50 mg .ROUTE .STK-MED ONE Stop: 10/13/18 14:29 Last Admin: 10/13/18 14:34 Dose: Not Given Documented by: [id number] Hydromorphone HCl (Dilaudid) 0.5 mg IV NOW STA Stop: 10/13/18 12:38 Last Admin: 10/13/18 13:21 Dose: 0.5 mg Documented by: [id number] Promethazine HCl (Phenergan) 25 mg in 51 mls @ 204 mls/hr IV NOW STA Stop: 10/13/18 12:51 Last Infusion: 10/13/18 14:02 Dose: 0 mls/hr Documented by: [id number] Admin: 10/13/18 13:20 Dose: 204 mls/hr Documented by: [id number] Sodium Chloride (Nss 1000ml) 1,000 mls @ 150 mls/hr IV .Q6H40M JUANA Stop: 11/12/18 12:44 Last Admin: 10/14/18 07:26 Dose: Not Given Documented by: [id number] Infusion: 10/13/18 18:46 Dose: 0 mls/hr Documented by: [id number] Admin: 10/13/18 13:21 Dose: 150 mls/hr Documented by: [id number] Sodium Chloride (Nss) 500 mls @ 999 mls/hr IV .Q31M JUANA Stop: 10/13/18 13:15 Last Infusion: 10/13/18 14:17 Dose: 0 mls/hr Documented by: [id number] Admin: 10/13/18 13:27 Dose: 999 mls/hr Documented by: [id number] Potassium Acetate 20 meq/ (Sodium Chloride) 110 mls @ 55 mls/hr IV Q2H JUANA Stop: 10/14/18 00:44 Last Infusion: 10/14/18 01:50 Dose: 0 mls/hr Documented by: [id number] Admin: 10/13/18 23:50 Dose: 55 mls/hr Documented by: [id number] Infusion: 10/13/18 23:06 Dose: 55 mls/hr Documented by: [id number] Admin: 10/13/18 21:06 Dose: 55 mls/hr Documented by: [id number] Potassium Phosphate 21 mmol/ (Sodium Chloride) 507 mls @ 127 mls/hr IV 0845 ONE Stop: 10/14/18 12:44 Last Infusion: 10/14/18 13:26 Dose: 0 mls/hr Documented by: [id number] Admin: 10/14/18 09:23 Dose: 127 mls/hr Documented by: [id number] Multivitamins 10 ml/ Thiamine HCl 100 mg/ Folic Acid 1 mg/Sodium Chloride 1,011.2 mls @ 1,011.2 mls/hr IV .Q1H JUANA Stop: 10/14/18 14:29 Last Infusion: 10/14/18 15:27 Dose: 0 mls/hr Documented by: [id number] Admin: 10/14/18 13:53 Dose: 999 mls/hr Documented by: [id number] Medical Decision Making Differential Diagnosis Differentials include chemotherapeutic effect, bowel obstruction, biliary obstruction, perforated viscus, viral illness, and electrolyte abnormality. Medical Records Attestation: I reviewed the patient's medical records. Home Medications Current Medication List: was personally reviewed by me Laboratory Data Attestation: I reviewed the patient's lab results. Result diagrams: 10/14/18 06:43 10/14/18 19:14 Lab Results 10/13/18 10/13/18 10/14/18 Range/Units 13:05 13:05 06:43 WBC 6.63 5.44 (4.8-10.8) K/uL RBC 3.84 L 3.76 L (4.7-6.1) M/uL Hgb 10.9 L 10.7 L (14.0-18.0) g/dL Hct 32.1 L 31.6 L (42-52) % MCV 83.6 84.0 (80-100) fL MCH 28.4 28.5 (25-34) pg MCHC 34.0 33.9 (32-36) g/dL RDW Std Deviation 40.0 40.0 (36.4-46.3) fL RDW Coeff of Sal 13.2 13.2 (11.5-14.5) % Plt Count 157 130 (130-400) K/uL MPV 10.5 H 10.6 H (7.4-10.4) fL Immature Gran % (Auto) 0.2 0.2 % Neut % (Auto) 87.4 82.2 % Lymph % (Auto) 10.7 13.8 % [place] % (Auto) 1.1 0.7 % Eos % (Auto) 0.6 2.9 % Baso % (Auto) 0.0 0.2 % Immature Gran # (Auto) 0.01 0.01 (0.00-0.02) K/uL Neut # (Auto) 5.80 4.47 (1.4-6.5) K/uL Lymph # (Auto) 0.71 L 0.75 L (1.2-3.4) K/uL [place] # (Auto) 0.07 L 0.04 L (0.11-0.59) K/uL Eos # (Auto) 0.04 0.16 (0-0.5) K/uL Baso # (Auto) 0.00 0.01 (0-0.2) K/uL ABG pH (7.35-7.45) ABG pCO2 (35-46) mmHg ABG pO2 (80-95) mm/Hg ABG HCO3 (19-24) mmol/L ABG O2 Saturation (90-95) % ABG Base Excess (-9-1.8) mEq/L Scott Test (Pos) Barometric Pressure mm/Hg Oxygen Given Sodium 138 (136-145) mmol/L Potassium 3.1 L (3.5-5.1) mmol/L Chloride 102 (98-107) mmol/L Carbon Dioxide 28 (21-32) mmol/L Anion Gap 8.0 (3-11) BUN 14 (7-18) mg/dl Creatinine 0.59 L (0.6-1.4) mg/dl Est Cr Clr Drug Dosing 108.7 ml/min Est GFR ( Amer) 117.2 Est GFR (Non-Af Amer) 101.1 BUN/Creatinine Ratio 23.2 H (10-20) Glucose 132 H (70-99) mg/dl Osmolality (280-300) mOsm/kg Lactate (0.4-2.0) mmol/L Calcium 8.7 (8.5-10.1) mg/dl Phosphorus (2.5-4.9) mg/dl Magnesium (1.8-2.4) mg/dl Total Bilirubin 0.9 (0.2-1) mg/dl Direct Bilirubin (0-0.2) mg/dl AST 21 (15-37) U/L ALT 25 (12-78) U/L Alkaline Phosphatase 136 H (45-117) U/L Total Protein 6.9 (6.4-8.2) gm/dl Albumin 3.2 L (3.4-5.0) gm/dl Globulin 3.7 (2.5-4.0) gm/dl Albumin/Globulin Ratio 0.9 (0.9-2) Lipase 270 (73-393) U/L 10/14/18 10/14/18 10/14/18 Range/Units 06:43 06:43 09:41 WBC (4.8-10.8) K/uL RBC (4.7-6.1) M/uL Hgb (14.0-18.0) g/dL Hct (42-52) % MCV (80-100) fL MCH (25-34) pg MCHC (32-36) g/dL RDW Std Deviation (36.4-46.3) fL RDW Coeff of Sal (11.5-14.5) % Plt Count (130-400) K/uL MPV (7.4-10.4) fL Immature Gran % (Auto) % Neut % (Auto) % Lymph % (Auto) % [place] % (Auto) % Eos % (Auto) % Baso % (Auto) % Immature Gran # (Auto) (0.00-0.02) K/uL Neut # (Auto) (1.4-6.5) K/uL Lymph # (Auto) (1.2-3.4) K/uL [place] # (Auto) (0.11-0.59) K/uL Eos # (Auto) (0-0.5) K/uL Baso # (Auto) (0-0.2) K/uL ABG pH 7.51 H* (7.35-7.45) ABG pCO2 32 L (35-46) mmHg ABG pO2 87 (80-95) mm/Hg ABG HCO3 25 H (19-24) mmol/L ABG O2 Saturation 97.2 H (90-95) % ABG Base Excess 2.3 H (-9-1.8) mEq/L Scott Test Pos (Pos) Barometric Pressure 722.7 mm/Hg Oxygen Given RA Sodium 140 (136-145) mmol/L Potassium 3.4 L (3.5-5.1) mmol/L Chloride 105 (98-107) mmol/L Carbon Dioxide 18 L (21-32) mmol/L Anion Gap 17.0 H (3-11) BUN 12 (7-18) mg/dl Creatinine 0.48 L (0.6-1.4) mg/dl Est Cr Clr Drug Dosing 126.5 ml/min Est GFR ( Amer) 127.6 Est GFR (Non-Af Amer) 110.1 BUN/Creatinine Ratio 24.0 H (10-20) Glucose 142 H (70-99) mg/dl Osmolality (280-300) mOsm/kg Lactate (0.4-2.0) mmol/L Calcium 8.6 (8.5-10.1) mg/dl Phosphorus 2.4 L (2.5-4.9) mg/dl Magnesium 2.1 (1.8-2.4) mg/dl Total Bilirubin 0.7 (0.2-1) mg/dl Direct Bilirubin 0.2 (0-0.2) mg/dl AST 16 (15-37) U/L ALT 23 (12-78) U/L Alkaline Phosphatase 121 H (45-117) U/L Total Protein 6.5 (6.4-8.2) gm/dl Albumin 3.1 L (3.4-5.0) gm/dl Globulin (2.5-4.0) gm/dl Albumin/Globulin Ratio (0.9-2) Lipase 203 (73-393) U/L 10/14/18 10/14/18 10/14/18 Range/Units 09:41 09:41 11:13 WBC (4.8-10.8) K/uL RBC (4.7-6.1) M/uL Hgb (14.0-18.0) g/dL Hct (42-52) % MCV (80-100) fL MCH (25-34) pg MCHC (32-36) g/dL RDW Std Deviation (36.4-46.3) fL RDW Coeff of Sal (11.5-14.5) % Plt Count (130-400) K/uL MPV (7.4-10.4) fL Immature Gran % (Auto) % Neut % (Auto) % Lymph % (Auto) % [place] % (Auto) % Eos % (Auto) % Baso % (Auto) % Immature Gran # (Auto) (0.00-0.02) K/uL Neut # (Auto) (1.4-6.5) K/uL Lymph # (Auto) (1.2-3.4) K/uL [place] # (Auto) (0.11-0.59) K/uL Eos # (Auto) (0-0.5) K/uL Baso # (Auto) (0-0.2) K/uL ABG pH (7.35-7.45) ABG pCO2 (35-46) mmHg ABG pO2 (80-95) mm/Hg ABG HCO3 (19-24) mmol/L ABG O2 Saturation (90-95) % ABG Base Excess (-9-1.8) mEq/L Scott Test (Pos) Barometric Pressure mm/Hg Oxygen Given Sodium 138 (136-145) mmol/L Potassium 3.4 L (3.5-5.1) mmol/L Chloride 104 (98-107) mmol/L Carbon Dioxide 27 (21-32) mmol/L Anion Gap 7.0 (3-11) BUN 10 (7-18) mg/dl Creatinine 0.51 L (0.6-1.4) mg/dl Est Cr Clr Drug Dosing 119.1 ml/min Est GFR ( Amer) 124.5 Est GFR (Non-Af Amer) 107.4 BUN/Creatinine Ratio 19.3 (10-20) Glucose 128 H (70-99) mg/dl Osmolality 288 (280-300) mOsm/kg Lactate 0.9 (0.4-2.0) mmol/L Calcium 8.5 (8.5-10.1) mg/dl Phosphorus (2.5-4.9) mg/dl Magnesium (1.8-2.4) mg/dl Total Bilirubin (0.2-1) mg/dl Direct Bilirubin (0-0.2) mg/dl AST (15-37) U/L ALT (12-78) U/L Alkaline Phosphatase (45-117) U/L Total Protein (6.4-8.2) gm/dl Albumin (3.4-5.0) gm/dl Globulin (2.5-4.0) gm/dl Albumin/Globulin Ratio (0.9-2) Lipase (73-393) U/L 10/14/18 Range/Units 19:14 WBC (4.8-10.8) K/uL RBC (4.7-6.1) M/uL Hgb (14.0-18.0) g/dL Hct (42-52) % MCV (80-100) fL MCH (25-34) pg MCHC (32-36) g/dL RDW Std Deviation (36.4-46.3) fL RDW Coeff of Sal (11.5-14.5) % Plt Count (130-400) K/uL MPV (7.4-10.4) fL Immature Gran % (Auto) % Neut % (Auto) % Lymph % (Auto) % [place] % (Auto) % Eos % (Auto) % Baso % (Auto) % Immature Gran # (Auto) (0.00-0.02) K/uL Neut # (Auto) (1.4-6.5) K/uL Lymph # (Auto) (1.2-3.4) K/uL [place] # (Auto) (0.11-0.59) K/uL Eos # (Auto) (0-0.5) K/uL Baso # (Auto) (0-0.2) K/uL ABG pH (7.35-7.45) ABG pCO2 (35-46) mmHg ABG pO2 (80-95) mm/Hg ABG HCO3 (19-24) mmol/L ABG O2 Saturation (90-95) % ABG Base Excess (-9-1.8) mEq/L Scott Test (Pos) Barometric Pressure mm/Hg Oxygen Given Sodium 139 (136-145) mmol/L Potassium 3.4 L (3.5-5.1) mmol/L Chloride 104 (98-107) mmol/L Carbon Dioxide 27 (21-32) mmol/L Anion Gap 7.0 (3-11) BUN 8 (7-18) mg/dl Creatinine 0.48 L (0.6-1.4) mg/dl Est Cr Clr Drug Dosing 126.5 ml/min Est GFR ( Amer) 127.6 Est GFR (Non-Af Amer) 110.1 BUN/Creatinine Ratio 16.4 (10-20) Glucose 128 H (70-99) mg/dl Osmolality (280-300) mOsm/kg Lactate (0.4-2.0) mmol/L Calcium 8.5 (8.5-10.1) mg/dl Phosphorus (2.5-4.9) mg/dl Magnesium (1.8-2.4) mg/dl Total Bilirubin (0.2-1) mg/dl Direct Bilirubin (0-0.2) mg/dl AST (15-37) U/L ALT (12-78) U/L Alkaline Phosphatase (45-117) U/L Total Protein (6.4-8.2) gm/dl Albumin (3.4-5.0) gm/dl Globulin (2.5-4.0) gm/dl Albumin/Globulin Ratio (0.9-2) Lipase (73-393) U/L Imaging Data Radiologist's Impression: Radiology results as stated below per my review and the radiologist's interpretation: CT abd pelvis IV con only CLINICAL HISTORY: pancreatic CA, vomiting, ?duodenal obs COMPARISON STUDY: 09/14/2018 TECHNIQUE: The patient was scanned in a dynamic helical fashion during intravenous administration of 94 cc of Optiray 320. A dose lowering technique was utilized adhering to the principles of ALARA. CT DOSE: 648.44 mGycm FINDINGS: Lower chest: There are partially visualized right upper and middle lobe airspace opacities, suspicious for a pneumonia. Liver: No focal hepatic masses are visualized. There is no significant ductal dilatation. There is equivocal hepatic cirrhosis. The portal vein appears patent. Gallbladder: The gallbladder is distended. Multiple calculi are visualized. Spleen: The spleen is borderline enlarged. There are perisplenic and perigastric varices present. Pancreas: There is a 6 cm pancreatic tail mass versus massively dilated duct secondary to a more proximal pancreatic lesion. There is splenic vein occlusion. Adrenal glands: Unremarkable. Kidneys: There is symmetric renal cortical enhancement. The kidneys are normal in size without hydronephrosis. Bowel: There is marked gastric distention. There is a soft soft tissue thickening at the level the gastric antrum/duodenal bulb resulting in gastric outlet obstruction. There is an 11 cm hypodense mass/fluid collection, located inferior to the stomach. This appears solid the prior study, and therefore this may represent necrotic neoplasm. There is mild nonspecific colonic wall thickening. Peritoneum: There is low volume ascites. There are multiple mildly enlarged mesenteric lymph nodes. There is an anterior midline spiculated mesenteric mass measuring 31 mm. This appears larger on the prior study and is consistent with metastatic disease. Vasculature: The abdominal aorta is normal in course and caliber. There is splenic vein occlusion upper abdominal varices. Adenopathy: There are multiple enlarged mesenteric lymph nodes. Pelvic viscera: The prostate is enlarged. There are postsurgical changes of a left hip arthroplasty. There are postsurgical changes of prior inguinal hernia repairs. Skeletal structures: No destructive osseous lesions are seen. IMPRESSION: 1. Soft tissue thickening/mass at the level of the gastric antrum/duodenal bulb with suspected secondary gastric outlet obstruction 2. 6 cm hypodense pancreatic body and tail, consistent with a mass or ductal dilatation secondary to a more proximal lesion. 3. 11 cm hypodense mass/fluid collection abutting the undersurface of the stomach. This was previously suspected to represent a hematoma. This therefore may represent a liquefied hematoma. 4. 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 Low volume ascites 6. Cholelithiasis. Distended gallbladder 7. Enlarged mesenteric lymph nodes. Anterior mesenteric/omental 31 mm mass consistent with metastatic disease 8. Partially visualized right middle and upper lobe pulmonary airspace opacity suspicious for pneumonia Electronically signed by: James Ann M.D. 10/13/2018 3:01 PM ECG Data Attestation: I personally reviewed and interpreted this ECG as follows: Indication: abdominal pain Rate (beats per minute): 73 Rhythm: normal sinus Findings: + other (QTC 434); no PAC, no PVC, no ST depression, no ST elevation, no acute ischemic change and no ectopy Blood Pressure Blood Pressure Findings: Normal blood pressure MDM Narrative This patient was evaluated and appeared to be in some discomfort. IV access was obtained and laboratory work was drawn. The patient was given Phenergan 25 mg IV for nausea. Differentials include chemotherapeutic effect, bowel obstruction, biliary obstruction, perforated viscus, viral illness, and electrolyte abnormality. IV hydration was initiated. Patient was hydrated with normal saline solution. CT scan of the abdomen pelvis was performed and there is evidence to suggest perhaps a gastric outlet obstruction. An NG tube was placed with 1500 mL's of fluid returned. Patient was Dr. Arrington believe the discussed with Dr. Arrington gastroenterology. Believes the patient can be seen tomorrow. Patient was discharged home to the care of his . They will return to the ED for worsening of symptoms or any medical concerns. Impression & Plan Gastric outlet obstruction Discharge Plan Visit Data *Final* Discharge Date/Time: 10/13/18 17:51 Chief Complaint: Dehydration Stated Complaint: DEHYDRATED, CANT KEEP FOOD DOWN ED Provider: Rufina Rock Discharge Problem: Gastric outlet obstruction Patient Disposition: Admitted As Inpatient Discharge Instructions Interventions: ED Discharge Assessment Last Done: 10/13/18 17:51 The scribe's documentation has been prepared under my direction and personally reviewed by me in its entirety. I confirm that the note above accurately reflects all work, treatment, procedures, and medical decision making performed by me.
--- NOTE | 2018-10-13 16:47 | History & Physical Report ---
Date of Service October 13, 2018 Assessment & Plan (1) Gastric outlet obstruction: As noted on CT [facility] ED discussed with GI and planning for intervention tomorrow Also noted on CT is splenic vein occlusion, this may need addressed as well NGT placed in ED, will continue NPO (2) Primary adenocarcinoma of body of pancreas: Current chemo pt (3) Constipation: Monitor Will likely need bowel regimen once stable (4) Hypokalemia: Replace and monitor (5) GERD (gastroesophageal reflux disease): Protonix IV (6) Depression: Holding home meds Monitor (7) Anxiety: Holding home meds PRN ativan (8) BPH (benign prostatic hyperplasia): Holding home meds (9) DVT prophylaxis: SCDs Holding rx given procedure tomorrow History of Present Illness Primary Care Provider: Jw De La Torre 73 y/o M c/o abd pain, n/v. Pt states he had a chemo tx daily on Saturday, , and Saturday. He states that over the last several days he has had ongoing n/v. He has not been able to eat anything for about 3 days. His PO intake has been low prior to this and he has lost a lot of weight. He has ongoing abd pain in the epigastric and RUQ. Pt denies fever, SOB, chest pain, c/d, LE pain or swelling. ED spoke with Dr. Arrington who follows with pt as outpt. He is planning surgical intervention tomorrow for gastric outlet obstruction. Allergies Allergy/AdvReac Type Severity Reaction Status Date / Time iodine Allergy Severe THROAT Verified 10/13/18 12:40 SWELLING, HIVES shellfish derived Allergy Severe ANAPHYLACTIC Verified 10/13/18 12:40 SHOCK, HIVES,SWELLING apple Allergy Intermediate HIVES Verified 10/13/18 12:40 neal Allergy Intermediate HIVES Verified 10/13/18 12:40 peach Allergy Intermediate HIVES Verified 10/13/18 12:40 codeine Allergy Unknown Unverified 10/13/18 14:34 oxycodone AdvReac Unknown FEEL GOOFY Verified 10/13/18 12:40 Home Medications Home Medications Medication Instructions Recorded Confirmed Type desvenlafaxine succinate [Pristiq] 25 mg PO HS #0 04/18/17 10/13/18 History alprazolam 0.5 mg tablet 0.5 mg PO DIRECTED tab 09/23/18 10/13/18 History dronabinol 5 mg capsule 5 mg PO BID 09/23/18 10/13/[address] 40 mg granules 40 mg PO BID 09/23/18 10/13/18 History delayed-release for susp in packet docusate sodium 100 mg PO DAILY PRN 10/05/18 10/13/18 History Marijuana 1 dose INHALATION UD PRN 10/07/18 10/13/18 History hydrocodone-acetaminophen [[place]] 1 tab PO Q4H #7 tab 10/08/18 10/13/18 Rx fentanyl 1 patch TOPICAL Q72H 10/13/18 10/13/18 History coedws-bzouevxn-bpyajjh [Creon] 12,000 units PO TID 10/13/18 10/13/18 History ondansetron HCl 8 mg PO DIRECTED PRN 10/13/18 10/13/18 History prochlorperazine maleate 10 mg PO Q6 PRN 10/13/18 10/13/18 History Past Med/Surg History Medical History Anxiety (Chronic) Depression (Chronic) Pancreatic cancer (Chronic) Anemia Attention deficit disorder (ADD) BPH (benign prostatic hyperplasia) Cancer PANCREATIC CANCER SKIN CANCER GERD (gastroesophageal reflux disease) Medical marijuana use Osteoarthritis Surgical History H/O hernia repair (Acute) Bilateral inguinal hernia repair H/O Achilles tendon repair (Resolved) Bilateral H/O left knee surgery (Resolved) Related to "muscles torn off the side" H/O nasal septoplasty (Resolved) History of esophagogastroduodenoscopy (EGD) (Resolved) History of left hip replacement (Resolved) History of tonsillectomy (Resolved) S/P surgical removal of pilonidal cyst (Resolved) Status post right partial knee replacement (Resolved) History of colonoscopy History of tooth extraction Hx of vasectomy Nausea and vomiting after administration of anesthetic agent Family History Mother , 97yo Natural with unknown cause Father , 68yo Brain cancer Sister No problems noted. Son No problems noted. Son No problems noted. Son No problems noted. Social History Preferred Language: Argentine Communication Ability: Effective Beliefs That Will Affect Care: None marital status: Current Living Situation: Family current occupational status: retired current occupation: Physical therapist Feels Safe at Home: Yes Smoking Status: Former smoker Hx Alcohol Use: Yes (hx of 1-2 glasses of wine most nights a week, but not recently) Hx Substance Use: Yes (medical marijuana) caffeine: Yes (1-2 cups/day but not so much now) during the past year weight has: decreased > 10 lbs Review of Systems Pertinent positives and negatives reviewed in HPI--all others negative Physical Exam Vital Signs (Past 24 Hours): Last Vital Signs Temp 36.8 C 10/13/18 12:22 Pulse 75 10/13/18 14:47 Resp 20 10/13/18 14:47 BP 134/68 10/13/18 14:47 Pulse Ox 98 10/13/18 14:47 Constitutional: WD/WN, vitals as above Eyes: normal visual rosales by confrontation and + anicteric sclerae Neck: normal visual inspection and trachea midline Respiratory: normal respiratory effort, lungs clear to auscultation Cardiovascular: Rate/Rhythm: regular rate and regular rhythm Gastrointestinal (Abdomen): Inspection/Auscultation: abdomen not distended Percussion/Palpation: + abdomen tender (RUQ and R lateral ) and abdomen soft Musculoskeletal: Head/Neck/Chest: normocephalic and head atraumatic negat rosemarie for edema, peripheral pulses intact Skin: no rashes, warm and dry Neurologic: awake; not confused Speech / Cognition: normal speech Psychiatric: Orientation: oriented x 3 Eye Contact: good eye contact Af fect: + irritable affect Results & Data Diagnostic Findings CTAP: 1. Soft tissue thickening/mass at the level of the gastric antrum/duodenal bulb with suspected secondary gastric outlet obstruction 2. 6 cm hypodense pancreatic body and tail, consistent with a mass or ductal dilatation secondary to a more proximal lesion. 3. 11 cm hypodense mass/fluid collection abutting the undersurface of the stomach. This was previously suspected to represent a hematoma. This therefore may represent a liquefied hematoma. 4. 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 Low volume ascites 6. Cholelithiasis. Distended gallbladder 7. Enlarged mesenteric lymph nodes. Anterior mesenteric/omental 31 mm mass consistent with metastatic disease 8. Partially visualized right middle and upper lobe pulmonary airspace opacity suspicious for pneumonia ECG Rhythm: normal sinus Code Status & VTE Plan Code Status Full code VTE Prophylaxis Plan VTE Prophylaxis will be ordered: Yes (1) Constipation Constipation type: unspecified constipation type Qualified Code(s): K59.00 - Constipation, unspecified
[2018-10-13] MEDS ORDERED: MAGNESIUM HYDROXIDE SUSP 30 ML UDC PO PRN (18:21)
[2018-10-13] MEDS ORDERED: ACETAMINOPHEN 325 MG TAB PO PRN (18:21)
[2018-10-13] MEDS ORDERED: ONDANSETRON INJ 2 MG/ML 2 ML VIAL IV PRN (18:21)
[2018-10-13] MEDS: POTASSIUM ACETATE 20 MEQ in 0.9 % SODIUM CHLORIDE 100 ML IV SCH ×2 (21:06→23:50)
[2018-10-13] MEDS: D5W AND 1/2NSS + 20MEQ KCL 20 MEQ/1,000 ML BAG IV SCH (21:06)
[2018-10-13] MEDS: PANTOprazole 40 MG in SYRINGE 0 ML IV SCH (21:07)
[2018-10-13] MEDS: fentaNYL 25 MCG/HR TDSY TD SCH (21:16)
[2018-10-13] MEDS: MoRPHine SULFATE 2 MG/ML CARP IV PRN (21:16)
[2018-10-14] MEDS: CHECK FENTANYL PATCH PLACEMENT SCH ×4 (00:22→23:47)
[2018-10-14] MEDS: LORazepam 0.5 MG/1 ML VIAL IV PRN ×3 (01:05→22:37)
[2018-10-14] MEDS: MoRPHine SULFATE 2 MG/ML CARP IV PRN ×2 (03:31→20:17)
[2018-10-14] MEDS: D5W AND 1/2NSS + 20MEQ KCL 20 MEQ/1,000 ML BAG IV SCH ×2 (05:24→15:26)
[2018-10-14] MEDS: PROMETHAZINE HCL 12.5 MG in SODIUM CHLORIDE 0.9% 50 ML IV PRN ×2 (06:13→20:13)
[2018-10-14 07:02] LABS: Basophils # (auto) 0.01 K/uL (0-0.2); Basophils % (auto) 0.2 %; Eosinophils # (auto) 0.16 K/uL (0-0.5); Eosinophils % (auto) 2.9 %; Hematocrit (blood only) 31.6 % (42-52); Hemoglobin 10.7 g/dL (14.0-18.0); Immature Granulocytes # (auto) 0.01 K/uL (0.00-0.02); Immature Granulocytes % (auto) 0.2 %; Lymphocytes # (auto) 0.75 K/uL (1.2-3.4); Lymphocytes % (auto) 13.8 %; Mean Corpuscular Hgb Conc 33.9 g/dL (32-36); Mean Platelet Volume 10.6 fL (7.4-10.4); Monocytes # (auto) 0.04 K/uL (0.11-0.59); Monocytes % (auto) 0.7 %; Neutrophils # (auto) 4.47 K/uL (1.4-6.5); Neutrophils % (auto) 82.2 %; Platelet Count 130 K/uL (130-400); RDW Coefficient of Variation 13.2 % (11.5-14.5); Red Blood Count 3.76 M/uL (4.7-6.1); White Blood Count 5.44 K/uL (4.8-10.8)
[2018-10-14] MEDS: SODIUM CHLORIDE 0.9% 1000ML 1,000 ML IV SCH (07:26)
[2018-10-14 08:03] LABS: Calcium 8.6 mg/dl (8.5-10.1); Creatinine Clr Calc Pharmacy 126.5 ml/min; Est GFR (African American) 127.6; Est GFR (Non-African American) 110.1; Magnesium 2.1 mg/dl (1.8-2.4); Phosphorus 2.4 mg/dl (2.5-4.9); Potassium 3.4 mmol/L (3.5-5.1)
[2018-10-14] MEDS ORDERED: POTASSIUM PHOS 3 MMOL/1 ML INFUSION IV STA (08:20)
[2018-10-14] MEDS ORDERED: POTASSIUM PHOSPHATE 21 MMOL in SODIUM CHLORIDE 0.9% 500 ML IV ONE (08:45)
[2018-10-14] MEDS: PANTOprazole 40 MG in SYRINGE 0 ML IV SCH ×2 (09:23→20:35)
[2018-10-14 09:34] LABS: Albumin Level 3.1 gm/dl (3.4-5.0); Bilirubin Direct 0.2 mg/dl (0-0.2); Bilirubin,Total 0.7 mg/dl (0.2-1); Total Protein 6.5 gm/dl (6.4-8.2)
[2018-10-14 10:01] LABS: HCO3 ABG 25 mmol/L (19-24); Oxygen Saturation ABG 97.2 % (90-95); PCO2 ABG 32 mmHg (35-46); PO2 ABG 87 mm/Hg (80-95)
[2018-10-14 10:05] LABS: Allen Test Pos (Pos); pH ABG 7.51 (7.35-7.45)
[2018-10-14 10:56] LABS: BUN Creatinine Ratio 19.3 (10-20); Calcium 8.5 mg/dl (8.5-10.1); Creatinine Clr Calc Pharmacy 119.1 ml/min; Est GFR (African American) 124.5; Est GFR (Non-African American) 107.4; Potassium 3.4 mmol/L (3.5-5.1)
--- NOTE | 2018-10-14 11:39 | Gastrointestinal Consultation ---
Date of Consultation October 14, 2018 Assessment & Plan (1) Gastric outlet obstruction: IV fluids, electrolyte replacement (Ph 2.4), analgesics and antiemetics. Continue NG. Plan for duodenal stent placement in the OR . Present on Admission?: Yes Supervising Physician Co-Signing Physician Notes I have seen and examined the patient with AMELIA Au whose note reflects our findings and plan. Patient with duodenal obstruction related to recently diagnosed pancreatic cancer. Minimal NGT drainage. Really irritated from the NGT. OK to remove the NGT today. if nausea or vomiting, then replace immediately. otherwise, will have NGT re-placed on Saturday evening for OR with stent placement on . History of Present Illness Reason for Consultation: Mr. Phil Barahona is a 73 yr old male with a hx of pancreatic cancer with mesenteric mets (3cm seen on CT on arrival) and encroachm ent of the pancreatic mass on the duodenum causing gastric outlet obstruction. He was directed to present for admission due to being unable to tolerate po foods/liquids and weakness. GI plans for placement of duodenal stent in the OR. Attending Physician: Stewart Sun Allergies Allergy/AdvReac Type Severity Reaction Status Date / Time iodine Allergy Severe THROAT Verified 10/13/18 12:40 SWELLING, HIVES shellfish derived Allergy Severe ANAPHYLACTIC Verified 10/13/18 12:40 SHOCK, HIVES,SWELLING apple Allergy Intermediate HIVES Verified 10/13/18 12:40 neal Allergy Intermediate HIVES Verified 10/13/18 12:40 peach Allergy Intermediate HIVES Verified 10/13/18 12:40 codeine Allergy Unknown Unverified 10/13/18 14:34 oxycodone AdvReac Unknown FEEL GOOFY Verified 10/13/18 12:40 Home Medications Home Medications Medication Instructions Recorded Confirmed Type desvenlafaxine succinate [Pristiq] 25 mg PO HS #0 04/18/17 10/13/18 History alprazolam 0.5 mg tablet 0.5 mg PO DIRECTED tab 09/23/18 10/13/18 History dronabinol 5 mg capsule 5 mg PO BID 09/23/18 10/13/[address] 40 mg granules 40 mg PO BID 09/23/18 10/13/18 History delayed-release for susp in packet docusate sodium 100 mg PO DAILY PRN 10/05/18 10/13/18 History Marijuana 1 dose INHALATION UD PRN 10/07/18 10/13/18 History hydrocodone-acetaminophen [[place]] 1 tab PO Q4H #7 tab 10/08/18 10/13/18 Rx fentanyl 1 patch TOPICAL Q72H 10/13/18 10/13/18 History llsmtj-kzwttyfx-imsiubm [Creon] 12,000 units PO TID 10/13/18 10/13/18 History ondansetron HCl 8 mg PO DIRECTED PRN 10/13/18 10/13/18 History prochlorperazine maleate 10 mg PO Q6 PRN 10/13/18 10/13/18 History Patient History Medical History Anxiety (Chronic) Depression (Chronic) Pancreatic cancer (Chronic) Anemia Attention deficit disorder (ADD) BPH (benign prostatic hyperplasia) Cancer PANCREATIC CANCER SKIN CANCER GERD (gastroesophageal reflux disease) Medical marijuana use Osteoarthritis Surgical History H/O hernia repair (Acute) Bilateral inguinal hernia repair H/O Achilles tendon repair (Resolved) Bilateral H/O left knee surgery (Resolved) Related to "muscles torn off the side" H/O nasal septoplasty (Resolved) History of esophagogastroduodenoscopy (EGD) (Resolved) History of left hip replacement (Resolved) History of tonsillectomy (Resolved) S/P surgical removal of pilonidal cyst (Resolved) Status post right partial knee replacement (Resolved) History of colonoscopy History of tooth extraction Hx of vasectomy Nausea and vomiting after administration of anesthetic agent Family History Mother , 97yo Natural with unknown cause Father , 68yo Brain cancer Sister No problems noted. Son No problems noted. Son No problems noted. Son No problems noted. Social History Preferred Language: Turkish Communication Ability: Effective Beliefs That Will Affect Care: None marital status: Current Living Situation: Family current occupational status: retired current occupation: Physical therapist Other Information That Helps Us Care for You: No Feels Safe at Home: Yes Safety Concerns: Feels Safe At This Time Smoking Status: Former smoker Hx Alcohol Use: Yes (hx of 1-2 glasses of wine most nights a week, but not recently) Hx Substance Use: Yes (medical marijuana) caffeine: Yes (1-2 cups/day but not so much now) during the past year weight has: decreased > 10 lbs Review of Systems Gen: + weakness, weight loss. Eyes: no vision changes, no eye redness or pain Respiratory: No SOB, no cough Cardiovascular: No irregular heartbeats or chest pain Abdomen: + abdominal pain, + nausea/vomiting Ext: No edema Hem: No excessive bruising/bleeding Physical Exam Vital Signs (Past 24 Hours): Last Vital Signs Temp 36.7 C 10/14/18 11:25 Pulse 67 10/14/18 11:25 Resp 16 10/14/18 11:25 BP 134/69 10/14/18 11:25 Pulse Ox 97 10/14/18 11:25 Constitutional: WD/WN, vitals as above + ill appearing and + thin Eyes: PERRL, conjunctivae normal, anicteric sclerae ENMT: external ear and nose normal, oropharynx normal Neck: trachea midline, no thyromegaly Respiratory: normal respiratory effort, lungs clear to auscultation Auscul tation: lungs clear to auscultation bilaterally Cardiovascular: RRR, no murmur, no edema Gastrointestinal (Abdomen): Inspection/Auscultation: abdomen not distended Percussion/Palpation: + abdomen tender (diffusely, worse on the left side and epigastric area) and abdomen soft Musculoskeletal: no cyanosis or clubbing, extremities motor strength 5/5 Skin: no rashes, warm and dry no jaundice Neurologic: PERRL, EOMI, accommodation nl, no face palsy, no dysarthria Psychiatric: A+Ox3, euthymic affect Results & Data Laboratory Results WBC 5, Hb 10, Hct 31, Platelets [address] abd/pelvis 10/13/18 1. Soft tissue thickening/mass at the level of the gastric antrum/duodenal bulb with suspected secondary gastric outlet obstruction 2. 6 cm hypodense pancreatic body and tail, consistent with a mass or ductal dilatation secondary to a more proximal lesion. 3. 11 cm hypodense mass/fluid collection abutting the undersurface of the stomach. This was previously suspected to represent a hematoma. This therefore may represent a liquefied hematoma. 4. 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 Low volume ascites 6. Cholelithiasis. Distended gallbladder 7. Enlarged mesenteric lymph nodes. Anterior mesenteric/omental 31 mm mass consistent with metastatic disease 8. Partially visualized right middle and upper lobe pulmonary airspace opacity suspicious for pneumonia
[2018-10-14] MEDS ORDERED: MULTI-VITAMIN INFUSION 10 ML, THIAMINE HCL 100 MG, FOLIC ACID 1 MG in SODIUM CHLORIDE 0... IV SCH (13:30)
[2018-10-14 20:29] LABS: BUN Creatinine Ratio 16.4 (10-20); Calcium 8.5 mg/dl (8.5-10.1); Creatinine Clr Calc Pharmacy 126.5 ml/min; Est GFR (African American) 127.6; Est GFR (Non-African American) 110.1; Potassium 3.4 mmol/L (3.5-5.1)
--- NOTE | 2018-10-14 23:38 | Hospitalist Progress Note ---
Date of Service October 14, 2018 Assessment & Plan (1) Gastric outlet obstruction: As noted on CT [facility] discussed with GI and planning for intervention tomorrow Also noted on CT is splenic vein occlusion, this may need addressed as well NGT placed in ED, will continue NPO Awaiting input from GI (2) Primary adenocarcinoma of body of pancreas: Current chemo pt D/W Oncology. Concern over triple acid base disorder: metabolic acidosis, met. alkalosis, resp alkalosis. However patient repeat BMP was normal. Patient likely has conraction alkalosis. Will continue to monitor. (3) Constipation: Monitor Will likely need bowel regimen once stable (4) Hypokalemia: Replace and monitor (5) GERD (gastroesophageal reflux disease): Protonix IV (6) Depression: Holding home meds Monitor (7) Anxiety: Holding home meds PRN ativan (8) BPH (benign prostatic hyperplasia): Holding home meds (9) Severe protein-calorie malnutrition: Patient has a normal BMI, but has been losing weight. Patient has not been eating for past 3 days. (10) Abnormal acid-base balance: Patient has contraction alkalosis. Will continue fluid and will monitor. (11) DVT prophylaxis: SCDs Holding rx given procedure tomorrow Spent 65 minutes in management of patietn as concern over possible triple acid base disorder. 8:30 TO 9:35 D/W reception and oncologist. Subjective Patient reports feeling tired but improved. His main complaint is the fact that he has an NG tube in place. He reports after initialing removing plenty of fluid, no additional fluid has been suctioned for past hour. Patient denies fever chills, nausea or vomiting. Physical Exam Vital Signs (Past 24 Hours): Last Vital Signs Temp 36.9 C 10/14/18 19:51 Pulse 72 10/14/18 19:51 Resp 20 10/14/18 19:51 BP 161/73 H 10/14/18 19:51 Pulse Ox 96 10/14/18 19:51 Physical Exam: Constitutional: WD/WN, vitals as above Eyes: normal visual rosales by confrontation and + anicteric sclerae Neck: normal visual inspection and trachea midline Respiratory: normal respiratory effort, lungs clear to auscultation Cardiovascular: Rate/Rhythm: regular rate and regular rhythm Gastrointestinal (Abdomen): Inspection/Auscultation: abdomen not distended Percussion/Palpation: + abdomen tender (RUQ and R lateral ) and abdomen soft Musculoskeletal: Head/Neck/Chest: normocephalic and head atraumatic negative for edema, peripheral pulses intact Skin: no rashes, warm and dry Neurologic: awake; not confused Speech / Cognition: normal speech Psychiatric: Orientation: oriented x 3 Eye Contact: good eye contact (1) Constipation Constipation type: unspecified constipation type Qualified Code(s): K59.00 - Constipation, unspecified
[2018-10-15] MEDS: D5W AND 1/2NSS + 20MEQ KCL 20 MEQ/1,000 ML BAG IV SCH ×3 (00:02→20:41)
[2018-10-15] MEDS: MoRPHine SULFATE 2 MG/ML CARP IV PRN ×2 (02:20→21:45)
[2018-10-15] MEDS: CHECK FENTANYL PATCH PLACEMENT SCH ×2 (07:03→15:43)
[2018-10-15] MEDS: PANTOprazole 40 MG in SYRINGE 0 ML IV SCH ×2 (08:50→20:42)
--- NOTE | 2018-10-15 10:28 | Gastroenterology Progress Note ---
Date of Service October 15, 2018 Assessment & Plan (1) Gastric outlet obstruction: 73 year old male w/ pancreatic CA and encroachment of the pancreatic mass on the duodenum presenting w/ gastric outlet obstruction. NG tube was removed by patient preference as little output and was causing discomfort. He has been having ice chips and sips w/o nausea or vomiting. I had a discussion with him in regards to replacing the NG tube. He is hesitant to this. I re-educated him that without NG tube placement and suction we would be unlikely to move forward to stent placemen. He is going to think about NG tube and will let us know by afternoon rounds. Nursing was updated. - Please place NG tube tonight - Pleas keep pt NPO - GI plan for EGD w. stent placement tomorrow Thank you for allowing us to participate in the care of this patient. Please call with any acute changes, questions or concerns. Please see addendum below with additional recommendation from my supervising physician. (2) Primary adenocarcinoma of body of pancreas: Supervising Physician Co-Signing Physician Notes Late entry: Patient was seen and examined on 10/15 with AMELIA Amaro. Her note reflects our findings and plan. Subjective Pt was seen and evaluated, chart reviewed. NG was removed per pt preference as little output. No abd pain. No nausea, vomiting. Has had ice chips and sips. No BM. No fever, chills, CP, SOB. Constitutional: no fever, no chills, no body aches and no fatigue Respiratory: no cough, no chest congestion, no dyspnea and no dyspnea on exertion Cardiovascular: no chest pain, no radiating jaw, neck or arm pain, no syncope and no edema Gastrointestinal: + bloating; no abdominal pain, no early satiety, no nausea, no vomiting, no hematemesis, no cramping, no blood in stools and no melena Physical Exam Vital Signs (Past 24 Hours): Last Vital Signs Temp 36.7 C 10/15/18 07:50 Pulse 74 10/15/18 07:50 Resp 18 10/15/18 07:50 BP 130/69 10/15/18 07:50 Pulse Ox 98 10/15/18 07:50 Constitutional: well nourished, cooperative and comfortable; no acute distress and not in distress Respiratory: no respiratory distress and no cough Auscultation: no crackles and no wheezes Cardiovascular: Rate/Rhythm: regular rate and + tachycardic Heart Sounds: no cardiac rub Palpation: no thrill Gastrointestinal (Abdomen): normal bowel sounds, soft, nontender, no hepatosplenomegaly Results & Data Laboratory Results 10/14/18 10/14/18 10/14/18 Range/Units 19:14 11:13 09:41 Sodium 139 138 (136-145) mmol/L Potassium 3.4 L 3.4 L (3.5-5.1) mmol/L Chloride 104 104 (98-107) mmol/L Carbon Dioxide 27 27 (21-32) mmol/L Anion Gap 7.0 7.0 (3-11) BUN 8 10 (7-18) mg/dl Creatinine 0.48 L 0.51 L (0.6-1.4) mg/dl Est Cr Clr Drug Dosing 126.5 119.1 ml/min Est GFR ( Amer) 127.6 124.5 Est GFR (Non-Af Amer) 110.1 107.4 BUN/Creatinine Ratio 16.4 19.3 (10-20) Glucose 128 H 128 H (70-99) mg/dl Osmolality 288 (280-300) mOsm/kg Calcium 8.5 8.5 (8.5-10.1) mg/dl
--- NOTE | 2018-10-15 13:53 | Anesthesiology Consultation ---
Date of Service October 15, 2018 Assessment & Plan Chart Review Chart Review: Acceptable Risk for Surgery Consults Requested none NPO Date Last Intake of Fluids: 10/14/18 Time Last Intake of Fluids: 01:00 Last Intake of Fluids Comment: Pt able to have sips and chips Date Last Intake of Solids: 10/13/18 History Surgery Operation Date: 10/16/18 13:00 Proposed Procedures p Esophagogastroduodenoscopy with Duodenal Stent - Sumeet Ruben Height/Weight Height: 5 ft 9 in Weight: 61.8 kg Allergies Allergy/AdvReac Type Severity Reaction Status Date / Time iodine Allergy Severe THROAT Verified 10/13/18 12:40 SWELLING, HIVES shellfish derived Allergy Severe ANAPHYLACTIC Verified 10/13/18 12:40 SHOCK, HIVES,SWELLING apple Allergy Intermediate HIVES Verified 10/13/18 12:40 neal Allergy Intermediate HIVES Verified 10/13/18 12:40 peach Allergy Intermediate HIVES Verified 10/13/18 12:40 codeine Allergy Unknown Unverified 10/13/18 14:34 oxycodone AdvReac Unknown FEEL GOOFY Verified 10/13/18 12:40 Medications Home Medications Medication Instructions Recorded Confirmed Last Taken desvenlafaxine succinate [Pristiq] 25 mg PO HS #0 04/18/17 10/13/18 10/09/18 08:00 alprazolam 0.5 mg tablet 0.5 mg PO DIRECTED tab 09/23/18 10/13/18 10/08/18 23:55 dronabinol 5 mg capsule 5 mg PO BID 09/23/18 10/13/18 10/07/18 16:[address] 40 mg granules 40 mg PO BID 09/23/18 10/13/18 10/08/18 16:00 delayed-release for susp in packet docusate sodium 100 mg PO DAILY PRN 10/05/18 10/13/18 10/09/18 08:00 Marijuana 1 dose INHALATION UD PRN 10/07/18 10/13/18 10/08/18 20:00 hydrocodone-acetaminophen [[place]] 1 tab PO Q4H #7 tab 10/08/18 10/13/18 Unknown fentanyl 1 patch TOPICAL Q72H 10/13/18 10/13/18 Unknown urdinb-tvlcwjmj-lstmvxf [Creon] 12,000 units PO TID 10/13/18 10/13/18 Unknown ondansetron HCl 8 mg PO DIRECTED PRN 10/13/18 10/13/18 Unknown prochlorperazine maleate 10 mg PO Q6 PRN 10/13/18 10/13/18 Unknown Active Medications Generic Name Dose Route Start Last Admin Trade Name Freq PRN Reason Stop Dose Admin Fentanyl 25 mcg 10/13/18 21:00 10/13/18 21:16 Duragesic TD 10/27/18 20:59 Not Given Q72H JUANA Potassium Chloride/Dextrose/Sod Cl 20 meq in 1,000 mls @ 100 mls/hr 10/13/18 18:21 10/15/18 11:15 D5w And 1/2nss + 20meq Kcl IV 11/12/18 18:20 100 mls/hr .Q10H JUANA Administration Pantoprazole Sodium 40 mg/ 10 mls @ 5 mls/min 10/13/18 21:00 10/15/18 08:50 Syringe IV 11/12/18 20:59 5 mls/min BID JUANA Administration Lorazepam 0.5 mg in 1 mls @ 1 mls/min 10/13/18 18:21 10/14/18 22:37 Ativan IV 11/12/18 18:20 1 mls/min Q4H PRN Administration Anxiety Promethazine HCl 12.5 mg/ 50.5 mls @ 202 mls/hr 10/14/18 04:03 10/14/18 20:38 Sodium Chloride IV 11/13/18 04:02 Infused Q6H PRN Infusion Nausea And Vomiting Ioversol 94 ml 10/13/18 14:35 10/13/18 14:36 Optiray 320 100ml IV 10/17/18 14:34 94 ml ONCE PRN Administration Interaction Checking Miscellaneous 1 ea 10/14/18 00:00 10/15/18 07:03 Fentanyl Patch Check Placement N/A 11/13/18 00:00 Not Given QS JUANA Morphine Sulfate 1 mg 10/13/18 18:21 10/15/18 02:20 Morphine Sulfate IV 10/27/18 18:20 1 mg Q4H PRN Administration Pain Past Medical History Medical History Anxiety (Chronic) Depression (Chronic) Pancreatic cancer (Chronic) Anemia Attention deficit disorder (ADD) BPH (benign prostatic hyperplasia) Cancer PANCREATIC CANCER SKIN CANCER GERD (gastroesophageal reflux disease) Medical marijuana use Osteoarthritis Past Family History Family History Mother , 97yo Natural with unknown cause Father , 68yo Brain cancer Sister No problems noted. Son No problems noted. Son No problems noted. Son No problems noted. Past Surgical History Surgical History H/O hernia repair (Acute) Bilateral inguinal hernia repair H/O Achilles tendon repair (Resolved) Bilateral H/O left knee surgery (Resolved) Related to "muscles torn off the side" H/O nasal septoplasty (Resolved) History of esophagogastroduodenoscopy (EGD) (Resolved) History of left hip replacement (Resolved) History of tonsillectomy (Resolved) S/P surgical removal of pilonidal cyst (Resolved) Status post right partial knee replacement (Resolved) History of colonoscopy History of tooth extraction Hx of vasectomy Nausea and vomiting after administration of anesthetic agent Social History Smoking Status: Former smoker tobacco type: cigarettes Smoking cigarettes per day: Less than a pack/day Hx Alcohol Use: Yes (hx of 1-2 glasses of wine most nights a week, but not recently) Alcohol type: wine alcohol intake frequency: 0-2 drinks per day Hx Substance Use: Yes (medical marijuana) substance use type: marijuana Substance Use Type Other:: medical marijuana Last Used Substance: Unknown Physical Exam Vital Signs Last Vital Signs Temp 36.6 C 10/15/18 11:41 Pulse 67 10/15/18 11:41 Resp 18 10/15/18 11:41 BP 143/79 H 10/15/18 11:41 Pulse Ox 99 10/15/18 11:41 Testing Laboratory Results 10/14/18 06:43 10/14/18 19:14
[2018-10-15] MEDS: LORazepam 0.5 MG/1 ML VIAL IV PRN ×3 (14:20→22:26)
[2018-10-15] MEDS ORDERED: BENZOCAINE/TETRACAIN/BUTAM CAN 200 APPLN/20 GM CAN EXT ONE (21:03)
--- NOTE | 2018-10-15 22:38 | Hospitalist Progress Note ---
Date of Service October 15, 2018 Assessment & Plan (1) Gastric outlet obstruction: As noted on [facility] discussed with GI and planning for intervention tomorrow Also noted on CT is splenic vein occlusion, this may need addressed as well NGT placed in ED, will continue NPO Appreciate input from GI. place NG tube tonight - Pleas keep pt NPO - GI plan for EGD w. stent placement tomorrow (2) Primary adenocarcinoma of body of pancreas: Current chemo pt D/W Oncology. Concern over triple acid base disorder: metabolic acidosis, met. alkalosis, resp alkalosis. However patient repeat BMP was normal. Patient likely has contraction alkalosis. Will continue to monitor. (3) Constipation: Monitor Will likely need bowel regimen once stable (4) Hypokalemia: Replace and monitor (5) GERD (gastroesophageal reflux disease): Protonix IV (6) Depression: Holding home meds Monitor (7) Anxiety: Holding home meds PRN ativan (8) BPH (benign prostatic hyperplasia): Holding home meds (9) Severe protein-calorie malnutrition: Patient has a normal BMI, but has been losing weight. Patient has not been eating for past 3 days. (10) Abnormal acid-base balance: Patient has contraction alkalosis. Will continue fluid and will monitor. (11) DVT prophylaxis: SCDs Holding rx given procedure tomorrow Spent 25 minutes in management of patient. Subjective 73 yo male reports no abdominal pain, nausea, vomiting. Patient is happy because he no longer has the NG tube. Review of Systems All systems reviewed & are unremarkable except as noted in HPI & below Physical Exam Vital Signs (Past 24 Hours): Last Vital Signs Temp 36.7 C 10/15/18 19:57 Pulse 71 10/15/18 19:57 Resp 18 10/15/18 19:57 BP 150/80 H 10/15/18 19:57 Pulse Ox 100 10/15/18 19:57 Physical Exam: Constitutional: WD/WN, vitals as above Eyes: normal visual rosales by confrontation and + anicteric sclerae Neck: normal visual inspection and trachea midline Respiratory: normal respiratory effort, lungs clear to auscultation Cardiovascular: Rate/Rhythm: regular rate and regular rhythm Gastrointestinal (Abdomen): Inspection/Auscultation: abdomen not distended Percussion/Palpation: abdomen soft Musculoskeletal: Head/Neck/Chest: normocephalic and head atraumatic negative for edema, peripheral pulses intact Skin: no rashes, warm and dry Neurologic: awake; not confused Speech / Cognition: normal speech Psychiatric: Orientation: oriented x 3 Eye Contact: good eye contact (1) Constipation Constipation type: unspecified constipation type Qualified Code(s): K59.00 - Constipation, unspecified
[2018-10-16] MEDS: CHECK FENTANYL PATCH PLACEMENT SCH ×3 (00:58→16:37)
[2018-10-16] MEDS: LORazepam 0.5 MG/1 ML VIAL IV PRN (03:02)
[2018-10-16] MEDS: D5W AND 1/2NSS + 20MEQ KCL 20 MEQ/1,000 ML BAG IV SCH ×2 (06:30→20:53)
[2018-10-16] MEDS: PANTOprazole 40 MG in SYRINGE 0 ML IV SCH ×2 (08:51→21:57)
--- NOTE | 2018-10-16 09:23 | Gastroenterology Progress Note ---
Date of Service October 16, 2018 Assessment & Plan (1) Gastric outlet obstruction: 73 year old male w/ pancreatic CA and encroachment of the pancreatic mass on the duodenum presenting w/ gastric outlet obstruction. NG tube was removed by patient preference as little output and was causing discomfort. He has been having ice chips and sips w/o nausea or vomiting. - Please keep NG to intermittent suction - NPO - EGD today Thank you for allowing us to participate in the care of this patient. Please call with any acute changes, questions or concerns. Please see addendum below with additional recommendation from my supervising physician. (2) Primary adenocarcinoma of body of pancreas: Supervising Physician Co-Signing Physician Notes I have seen and examined the patient with AMELIA Amaro whose note re flects our findings and plan. Subjective Pt was seen and evaluated, chart reviewed. NG on intermittent suction. No abd pain. No nausea, vomiting. Is NPO. No BM. No fever, chills, CP, SOB. Constitutional: no fever, no chills and no fatigue Respiratory: no cough, no chest congestion, no dyspnea and no wheezing Cardiovascular: no chest pain, no radiating jaw, neck or arm pain, no dyspnea on exertion and no palpitations Gastrointestinal: no abdominal pain, no bloating, no early satiety, no nausea, no vomiting, no hematemesis, no cramping, no blood in stools and no melena Physical Exam Vital Signs (Past 24 Hours): Last Vital Signs Temp 36.9 C 10/16/18 07:24 Pulse 85 10/16/18 07:24 Resp 16 10/16/18 07:24 BP 132/76 10/16/18 07:24 Pulse Ox 97 10/16/18 07:24 Constitutional: well nourished, cooperative and comfortable; no acute distress and not in distress Respiratory: no respiratory distress and no cough Auscultation: no crackles and no wheezes Cardiovascular: Rate/Rhythm: regular rate and regular rhythm Heart Sounds: no cardiac rub Palpation: no thrill Gastrointestinal (Abdomen): normal bowel sounds, soft, nontender, no hepatosplenomegaly Results & Data Laboratory Results No current labs.
[2018-10-16] MEDS: HEPARIN 100 UNIT/ML 5ML FLUSH FLUSH PRN (11:56)
[2018-10-16] MEDS ORDERED: ROCURONIUM BROMIDE 10 MG/ML 5 ML VIAL ONE (12:06)
[2018-10-16] MEDS ORDERED: SUCCINYLCHOLINE CHLORIDE 20 MG/ML 10 ML VIAL ONE (12:06)
[2018-10-16] MEDS ORDERED: fentaNYL citrate 100 MCG/2 ML VIAL ONE (12:06)
[2018-10-16] MEDS ORDERED: LIDOCAINE HCL 2% 2 ML VIAL/AMP(20MG/ML) INFIL ONE (12:06)
[2018-10-16] MEDS ORDERED: PROPOFOL IV EMULSION 10 MG/ML 20 ML VIAL IV ONE (12:06)
--- NOTE | 2018-10-16 13:07 | History & Physical Bridge Note ---
Date of Service October 16, 2018 History & Physical Bridge Note I have examined the patient, reviewed the History & Physical and in the interval since the performance of the History & Physical I have noted the following changes of clinical significance: no changes noted. The patient appears to have gastric outlet obstruction related to a pancreatic cancer. We have discussed the risks of EGD with enteral stent placment to include bleeding, infection, perforation, pain, biliary obstruction, and need for f/u studies.
[2018-10-16] MEDS ORDERED: ONDANSETRON INJ 2 MG/ML 2 ML VIAL ONE (13:26)
[2018-10-16] MEDS ORDERED: ePHEDrine sulfate 50 MG/ML AMP IV PRN (14:05)
[2018-10-16] MEDS ORDERED: DEXAMETHASONE SOD INJ 4 MG/ML VIAL IV PRN (14:05)
[2018-10-16] MEDS ORDERED: fentaNYL citrate 100 MCG/2 ML VIAL IV PRN (14:05)
[2018-10-16] MEDS ORDERED: ATROPINE SULFATE 0.1 MG/ML 10ML SYR IV PRN (14:05)
[2018-10-16] MEDS ORDERED: ONDANSETRON INJ 2 MG/ML 2 ML VIAL IV PRN (14:05)
--- NOTE | 2018-10-16 14:58 | Post Operative Brief Note ---
Immediate Post Op Note v1 Date of Surgery October 16, 2018 Pre & Post Diagnosis Operation Date: 10/16/18 13:00 Pre-Op Diagnosis: Gastric Outlet Obstruction Post-Op Diagnosis: Gastric Outlet Obstruction Procedure Operation Date: 10/16/18 13:00 Actual Procedures p Esophagogastroduodenoscopy with Duodenal Stent(Not Applicable) - Sumeet Miranda Surgeon Sumeet Miranda [employer] none Estimated Blood Loss 0 Findings See Below (duodenal stricture, enteral stent placed)
--- NOTE | 2018-10-16 15:11 | GI REPORT ---
Patient Name: Phil Barahona Procedure Date: 10/16/2018 1:20 PM Date of : 1945 Admit Type: Inpatient Age: 73 Gender: Male Attending MD: Sumeet Miranda DO Procedure: Upper GI endoscopy Providers: Sumeet Miranda DO Referring MD: Hal Arrington MD, Marquita Goyal DO, Stewart Sun M.D., Jamal Segura Md Indications: For therapy of duodenal stenosis (advanced pancreatic cancer resulting in duodenal stenosis and Gastric Outlet Obstruction) Medicines: General Anesthesia Complications: No immediate complications. Estimated blood loss: Minimal. Estimated Blood Loss: Estimated blood loss: Minimal. Estimated blood loss was minimal. Procedure: Pre-Anesthesia Assessment: - Prior to the procedure, a History and Physical was performed, and patient medications, allergies and sensitivities were reviewed. The patient's tolerance of previous anesthesia was reviewed. - The risks and benefits of the procedure and the sedation options and risks were discussed with the patient. All questions were answered and informed consent was obtained. - Patient identification and proposed procedure were verified prior to the procedure by the physician, the nurse and the senior talent management consultant. The procedure was verified in the procedure room. - Pre-procedure physical examination revealed no contraindications to sedation. - ASA Grade Assessment: IV - A patient with severe systemic disease that is a constant threat to life. - After reviewing the risks and benefits, the patient was deemed in satisfactory condition to undergo the procedure. - The anesthesia plan was to use general anesthesia. - Immediately prior to administration of medications, the patient was re-assessed for adequacy to receive sedatives. - The heart rate, respiratory rate, oxygen saturations, blood pressure, adequacy of pulmonary ventilation, and response to care were monitored throughout the procedure. - The physical status of the patient was re-assessed after the procedure. After obtaining informed consent, the endoscope was passed under direct vision. Throughout the procedure, the patient's blood pressure, pulse, and oxygen saturations were monitored continuously. The scope was introduced through the mouth, and advanced to the antrum/prepyloric region of the stomach. The patient tolerated the procedure well. The upper GI endoscopy was unusually difficult due to stricture. Successful completion of the procedure was aided by performing the maneuvers documented (below) in this report. Findings: The examined esophagus was normal. Clear fluid was found in the entire examined stomach. Fluid aspiration was performed. An acquired malignant-appearing, intrinsic severe stenosis was found in the duodenal bulb and was non-traversed with the endoscope. A 0.035 in [employer] 2 guidewire was advanced throught the stricture through an ERCP cannula. Due to the nature and position of the stricture the wire could could only be advanced through an upper endoscope. After the wire was in position we carefully removed the endoscope and transitioned to a colonoscope. After carefully advancing the colonoscope we were then able to advance the enteral stent through the stricture. This was stented with a 22 mm x 9 cm Evolution controlled-release uncovered stent under fluoroscopic guidance. Estimated blood loss was minimal. Impression: - Normal esophagus. - Clear gastric fluid. Fluid aspiration performed. - Acquired duodenal stenosis. 22 mm x 9 cm Prosthesis placed. Recommendation: - [facility]. - Clear liquid diet today. Sumeet Miranda D.O. Sumeet Miranda, 10/16/2018 3:10:30 PM This report has been signed electronically. Note Initiated On: 10/16/2018 1:20 PM Number of Addenda: 0 I attest to the content of the Intraoperative Record and orders documented therein, exceptions below {[id number]}
[2018-10-16] MEDS ORDERED: PROMETHAZINE HCL 12.5 MG in SODIUM CHLORIDE 0.9% 50 ML IV PRN (15:57)
[2018-10-16] MEDS ORDERED: ESMOLOL HCL INJ 10 MG/ML 10ML VIAL IV ONE (15:57)
[2018-10-16] MEDS: PROMETHAZINE HCL 12.5 MG in SODIUM CHLORIDE 0.9% 50 ML IV PRN (16:14)
[2018-10-16] MEDS ORDERED: PROMETHAZINE HCL 12.5 MG in SODIUM CHLORIDE 0.9% 50 ML IV STA (20:02)
[2018-10-16] MEDS: MoRPHine SULFATE 2 MG/ML CARP IV PRN (20:38)
[2018-10-16] MEDS: fentaNYL 25 MCG/HR TDSY TD SCH (20:49)
--- NOTE | 2018-10-16 22:36 | Hospitalist Progress Note ---
Date of Service October 16, 2018 Assessment & Plan (1) Gastric outlet obstruction: As noted on [facility] discussed with GI and planning for intervention tomorrow Also noted on CT is splenic vein occlusion, this may need addressed as well Appreciate input from GI. - GI plan for EGD w. stent placement completed on 10/16 Patient remains with nausea. will start clear liquid diet. (2) Primary adenocarcinoma of body of pancreas: Current chemo pt D/W Oncology. Concern over triple acid base disorder: metabolic acidosis, met. alkalosis, resp alkalosis. However patient repeat BMP was normal. Patient likely has contraction alkalosis. Will continue to monitor. This appears to have resolved. (3) Constipation: Monitor Will likely need bowel regimen once stable (4) Hypokalemia: Replace and monitor (5) GERD (gastroesophageal reflux disease): Protonix IV (6) Depression: Holding home meds Monitor (7) Anxiety: Holding home meds PRN ativan (8) BPH (benign prostatic hyperplasia): Holding home meds (9) Severe protein-calorie malnutrition: Patient has a normal BMI, but has been losing weight. Patient has not been eating for3 days prior to admission. (10) Abnormal acid-base balance: Patient has contraction alkalosis. rESOLVED. Will continue fluid and will monitor. (11) DVT prophylaxis: SCDs Holding rx given procedure tomorrow Spent 25 minutes in management of patient. Subjective Patient reports that he tolerated the procedure well. Patient though continues to feel somewhat nauseous. Patient has no other complaints at this time. Review of Systems All systems reviewed & are unremarkable except as noted in HPI & below Physical Exam Vital Signs (Past 24 Hours): Last Vital Signs Temp 36.8 C 10/16/18 19:21 Pulse 87 10/16/18 19:21 Resp 18 10/16/18 19:21 BP 117/70 10/16/18 19:21 Pulse Ox 97 10/16/18 19:21 Physical Exam: Constitutional: WD/WN, vitals as above Eyes: normal visual rosales by confrontation and + anicteric sclerae Neck: normal visual inspection and trachea midline Respiratory: normal respiratory effort, lungs clear to auscultation Cardiovascular: Rate/Rhythm: regular rate and regular rhythm Gastrointestinal (Abdomen): Inspection/Auscultation: abdomen not distended Percussion/Palpation: abdomen soft Musculoskeletal: Head/Neck/Chest: normocephalic and head atraumatic negative for edema, peripheral pulses intact Skin: no rashes, warm and dry Neurologic: awake; not confused Speech / Cognition: normal speech Psychiatric: Orientation: oriented x 3 Eye Contact: good eye contact (1) Constipation Constipation type: unspecified constipation type Qualified Code(s): K59.00 - Constipation, unspecified
[2018-10-17] MEDS: CHECK FENTANYL PATCH PLACEMENT SCH ×3 (00:02→17:05)
[2018-10-17] MEDS: PROMETHAZINE HCL 12.5 MG in SODIUM CHLORIDE 0.9% 50 ML IV PRN ×3 (00:35→12:05)
[2018-10-17] MEDS: MoRPHine SULFATE 2 MG/ML CARP IV PRN ×4 (00:52→22:30)
[2018-10-17] MEDS: D5W AND 1/2NSS + 20MEQ KCL 20 MEQ/1,000 ML BAG IV SCH ×2 (09:04→18:45)
[2018-10-17] MEDS: PANTOprazole 40 MG in SYRINGE 0 ML IV SCH ×2 (09:04→20:55)
[2018-10-17] MEDS: LORazepam 0.5 MG/1 ML VIAL IV PRN ×2 (09:12→19:09)
--- NOTE | 2018-10-17 09:34 | Gastroenterology Progress Note ---
Date of Service October 17, 2018 Assessment & Plan (1) Gastric outlet obstruction: 73 year old male w/ pancreatic CA and encroachment of the pancreatic mass on the duodenum presenting w/ gastric outlet obstruction. NG tube was removed by patient preference as little output and was causing discomfort. He has been having ice chips and sips w/o nausea or vomiting. Now S/P EGD w/ duodenal stent placement. No BM since admission, had vomiting overnight. - KUB - Clear liquids as tolerated - Please see the handout that was printed and placed in the patient blue chart for dietary recommendations following stent placement. Will review KUB and sign off. Thank you for allowing us to participate in the care of this patient. Please call with any acute changes, questions or concerns. Please see addendum below with additional recommendation from my supervising physician. (2) Primary adenocarcinoma of body of pancreas: Supervising Physician Co-Signing Physician Notes Late entry: Patient was seen and examined on 10/17 with AMELIA Amaro. Her note reflects our findings and plan. Subjective Pt was seen and evaluated, chart reviewed. S/P stent placement. [place] well after procedure. Had liquid for dinner. Woke up in the middle of the night w/ nausea, vomiting. No coffee ground emesis or hematemesis. this AM mild abd pain no furhter episodes of vomiting. No BM. No fever, chills, CP, SOB. Physical Exam Vital Signs (Past 24 Hours): Last Vital Signs Temp 36.9 C 10/17/18 07:35 Pulse 71 10/17/18 07:35 Resp 18 10/17/18 07:35 BP 134/76 10/17/18 07:35 Pulse Ox 98 10/17/18 07:35 Constitutional: well nourished, cooperative and comfortable; no acute distress and not in distress Respiratory: no respiratory distress and no cough Auscultation: no crackles and no wheezes Cardiovascular: Rate/Rhythm: regular rate and regular rhythm Heart Sounds: no cardiac rub Palpation: no thrill Gastrointestinal (Abdomen): normal bowel sounds, soft, nontender, no hepatosplenomegaly
--- NOTE | 2018-10-17 09:57 | XRay Report ---
XR KUB/Abdomen 1 view CLINICAL HISTORY: vomiting, duodenal stent placement, constipation COMPARISON STUDY: 10/05/2018 FINDINGS: There is a vertically oriented metallic duodenal stent visualized within the right upper ab domen. There is no pathologic bowel dilatation. There is contrast within nondilated colon. There are advanced degenerative changes within the spine. IMPRESSION: 1. No pathologic bowel dilatation 2. A right upper quadrant duodenal stent is visualized Electronically signed by: James Ann M.D. 10/17/2018 9:56 AM
[2018-10-17] MEDS: PROCHLORPERAZINE 10 MG in SYRINGE 8 ML IV PRN (13:25)
--- NOTE | 2018-10-17 22:45 | Hospitalist Progress Note ---
Date of Service October 17, 2018 Assessment & Plan (1) Gastric outlet obstruction: As noted on [facility] discussed with GI and planning for intervention tomorrow Also noted on CT is splenic vein occlusion, this may need addressed as well NGT placed in ED, will continue NPO Appreciate input from GI. GI plan for EGD w. stent placement completed on 10/16 Patient remains with nausea Vomitied overnight. will continue on clear liquid diet. (2) Primary adenocarcinoma of body of pancreas: Current chemo pt D/W Oncology. Concern over triple acid base disorder: metabolic acidosis, met. alkalosis, resp alkalosis. However patient repeat BMP was normal. Patient likely has contraction alkalosis. Will continue to monitor. (3) Constipation: Monitor Will likely need bowel regimen once stable (4) Hypokalemia: Replace and monitor (5) GERD (gastroesophageal reflux disease): Protonix IV (6) Depression: Holding home meds Monitor (7) Anxiety: Holding home meds PRN ativan (8) BPH (benign prostatic hyperplasia): Holding home meds (9) Severe protein-calorie malnutrition: Patient has a normal BMI, but has been losing weight. Patient has not been eating for past 3 days. (10) Abnormal acid-base balance: Patient has contraction alkalosis. Will continue fluid and will monitor. (11) DVT prophylaxis: SCDs Holding rx given procedure tomorrow Spent 25 minutes in management of patient. Subjective Patient contnues to have nausea. He vomtied overnight. PATIENT denies any abdominal pain, fever chills. Review of Systems All systems reviewed & are unremarkable except as noted in HPI & below Physical Exam Vital Signs (Past 24 Hours): Last Vital Signs Temp 37 C 10/17/18 19:52 Pulse 79 10/17/18 19:52 Resp 18 10/17/18 19:52 BP 128/77 10/17/18 19:52 Pulse Ox 97 10/17/18 19:52 Physical Exam: Constitutional: WD/WN, vitals as above Eyes: normal visual rosales by confrontation and + anicteric sclerae Neck: normal visual inspection and trachea midline Respiratory: normal respiratory effort, lungs clear to auscultation Cardiovascular: Rate/Rhythm: regular rate and regular rhythm Gastrointestinal (Abdomen): Inspection/Auscultation: abdomen not distended Percussion/Palpation: abdomen soft Musculoskeletal: Head/Neck/Chest: normocephalic and head atraumatic negative for edema, peripheral pulses intact Skin: no rashes, warm and dry Neurologic: awake; not confused Speech / Cognition: normal speech Psychiatric: Orientation: oriented x 3 Eye Contact: good eye contact (1) Constipation Constipation type: unspecified constipation type Qualified Code(s): K59.00 - Constipation, unspecified
[2018-10-18] MEDS: LORazepam 0.5 MG/1 ML VIAL IV PRN ×5 (01:51→22:14)
[2018-10-18] MEDS: CHECK FENTANYL PATCH PLACEMENT SCH ×3 (01:53→17:44)
[2018-10-18] MEDS: D5W AND 1/2NSS + 20MEQ KCL 20 MEQ/1,000 ML BAG IV SCH ×3 (05:27→20:18)
[2018-10-18] MEDS: PROCHLORPERAZINE 10 MG in SYRINGE 8 ML IV PRN (05:27)
[2018-10-18] MEDS: PANTOprazole 40 MG in SYRINGE 0 ML IV SCH ×2 (07:52→20:18)
[2018-10-18] MEDS: fentaNYL 12 MCG/HR TDSY TD SCH (10:16)
[2018-10-18] MEDS: PROMETHAZINE HCL 12.5 MG in SODIUM CHLORIDE 0.9% 50 ML IV PRN (20:09)
--- NOTE | 2018-10-18 22:39 | Hospitalist Progress Note ---
Date of Service October 18, 2018 Assessment & Plan (1) Gastric outlet obstruction: As noted on [facility] discussed with GI and planning for intervention tomorrow Also noted on CT is splenic vein occlusion, this may need addressed as well NGT placed in ED, will continue NPO Appreciate input from GI. GI plan for EGD w. stent placement completed on 10/16 will advance on clear liquid diet. will dw GI on specifics on GI diet. D/W nurse as well. Instruction in paper chart. Anticipate discharge in 1-2 days Patient complaing of mild abdominal pain, fenatnyl patch ordered. May consider stopping this in AM if pain free or short term course for discharge. (2) Primary adenocarcinoma of body of pancreas: Current chemo pt D/W Oncology. Concern over triple acid base disorder: metabolic acidosis, met. alkalosis, resp alkalosis. However patient repeat BMP was normal. Patient likely has contraction alkalosis. Will continue to monitor. This appears to have resolved. (3) Constipation: Monitor Will likely need bowel regimen once stable (4) Hypokalemia: Replace and monitor (5) GERD (gastroesophageal reflux disease): Protonix IV (6) Depression: Holding home meds Monitor will restart in am (7) Anxiety: Holding home meds PRN ativan will restart in am (8) BPH (benign prostatic hyperplasia): Holding home meds will restart in AM (9) Severe protein-calorie malnutrition: Patient has a normal BMI, but has been losing weight. Patient has not been eating for3 days prior to admission. will advance to a full liquid diet (10) Abnormal acid-base balance: Patient has contraction alkalosis. rESOLVED. Will continue fluid and will monitor. (11) DVT prophylaxis: SCDs Spent 25 minutes in management of patient. Subjective Patient reports feeling better, he has less nausea, he is interested in advancing his diet. gi less instruction for a stent diet, but did not specify spped of advancement of his diet. Physical Exam Vital Signs (Past 24 Hours): Last Vital Signs Temp 37.3 C 10/18/18 19:00 Pulse 86 10/18/18 19:00 Resp 18 10/18/18 19:00 BP 143/72 H 10/18/18 19:00 Pulse Ox 97 10/18/18 19:00 Physical Exam: Constitutional: WD/WN, vitals as above Eyes: normal visual rosales by confrontation and + anicteric sclerae Neck: normal visual inspection and trachea midline Respiratory: normal respiratory effort, lungs clear to auscultation Cardiovascular: Rate/Rhythm: regular rate and regular rhythm Gastrointestinal (Abdomen): Inspection/Auscultation: abdomen not distended Percussion/Palpation: abdomen soft Musculoskeletal: Head/Neck/Chest: normocephalic and head atraumatic negative for edema, peripheral pulses intact Skin: no rashes, warm and dry Neurologic: awake; not confused Speech / Cognition: normal speech Psychiatric: Orientation: oriented x 3 Eye Contact: good eye contact (1) Constipation Constipation type: unspecified constipation type Qualified Code(s): K59.00 - Constipation, unspecified
[2018-10-19] MEDS: CHECK FENTANYL PATCH PLACEMENT SCH ×3 (01:01→17:32)
[2018-10-19] MEDS: LORazepam 0.5 MG/1 ML VIAL IV PRN (03:59)
[2018-10-19] MEDS: PROCHLORPERAZINE 10 MG in SYRINGE 8 ML IV PRN (03:59)
[2018-10-19] MEDS: D5W AND 1/2NSS + 20MEQ KCL 20 MEQ/1,000 ML BAG IV SCH (06:39)
[2018-10-19] MEDS ORDERED: PROCHLORPERAZINE MALEATE 10 MG TAB PO PRN (07:12)
[2018-10-19] MEDS: PANTOprazole 40 MG TAB PO SCH ×2 (09:04→20:46)
[2018-10-19 10:03] LABS: BUN Creatinine Ratio 7.2 (10-20); Calcium 8.6 mg/dl (8.5-10.1); Creatinine Clr Calc Pharmacy 109.6 ml/min; Est GFR (African American) 119.8; Est GFR (Non-African American) 103.3; Potassium 3.6 mmol/L (3.5-5.1)
[2018-10-19] MEDS: PANCREAZE (LIPASE 4,200U) CAP PO SCH ×3 (10:04→17:36)
[2018-10-19] MEDS: DRONABINOL 2.5 MG CAP PO SCH ×2 (10:10→20:44)
[2018-10-19] MEDS ORDERED: MOVANTIK 25 MG PO ONE (10:15)
[2018-10-19] MEDS ORDERED: ALPRAZolam 0.5 MG TABLET PO STA (14:32)
--- NOTE | 2018-10-19 14:34 | Hospitalist Progress Note ---
Date of Service October 19, 2018 Assessment & Plan (1) Gastric outlet obstruction: due to pancreatic tumor encroaching duodenum stent placed in duodenum on 10/16, tolerated well advancing diet slowly, up to full liquids today, tolerating well abdominal pain improved after starting Fentanyl patch yesterday will continue hopeful for d/c to home tomorrow (2) Primary adenocarcinoma of body of pancreas: currently getting chemotherapy has lost a lot of weight and muscle mass hopefully the duodenal stent will help improve intake will follow up with oncology for further chemotherapy (3) Constipation: difficult to resolve, required an enema a few days ago will use Movantik, given samples by his PCP, helped at home (4) Hypokalemia: 3.6 today, repeat tomorrow (5) GERD (gastroesophageal reflux disease): Protonix IV (6) Depression: resume home medications mood is stable currently (7) Anxiety: d/c Ativan IV resume Xanax 0.5mg PO q8 PRN (8) BPH (benign prostatic hyperplasia): resume home meds urinating okay (9) Severe protein-calorie malnutrition: Patient has a normal BMI, but has been losing weight. full liquid diet hopeful that the duodenal stent will relieve the obstruction and allow him to eat (10) Abnormal acid-base balance: resolved, was likely from starvation, vomiting (11) DVT prophylaxis: SCDs plan for d/c tomorrow Subjective patient feeling a little better today, still with pain he says that the Fentanyl patch is helping tolerating full liquids, discussed the stent diet, went over packet discussed getting off of the Ativan IV, he understood says he takes Xanax at home he felt like he was not ready to go home just yet Review of Systems All systems reviewed & are unremarkable except as noted in HPI & below Gastrointestinal: + abdominal pain and + constipation; no nausea, no vomiting and no diarrhea/loose stools Physical Exam Vital Signs (Past 24 Hours): Last Vital Signs Temp 36.4 C L 10/19/18 08:00 Pulse 82 10/19/18 08:00 Resp 18 10/19/18 08:00 BP 126/67 10/19/18 08:00 Pulse Ox 98 10/19/18 08:00 Constitutional: well developed, + ill appearing and + thin Eyes: PERRL, conjunctivae normal, anicteric sclerae ENMT: external ear and nose normal, oropharynx normal Neck: trachea midline, no thyromegaly Respiratory: normal respiratory effort, lungs clear to auscultation Cardiovascular: RRR, no murmur, no edema Gastrointestinal (Abdomen): normal bowel sounds, soft, nontender, no hepatosplenomegaly Musculoskeletal: no cyanosis or clubbing, extremities motor strength 5/5 Skin: no rashes, warm and dry Neurologic: patellar DTR's 2+ bilat, sensation intact and PERRL, EOMI, accommodation nl, no face palsy, no dysarthria Psychiatric: A+Ox3, euthymic affect Lymphatic: no cervical or axillary lymphadenopathy Results & Data Laboratory Results Laboratory Results - last 24 hr 10/19/18 09:22 Sodium 135 L Potassium 3.6 Chloride 102 Carbon Dioxide 26 Anion Gap 7.0 BUN 4 L Creatinine 0.56 L Est Cr Clr Drug Dosing 109.6 Est GFR ( Amer) 119.8 Est GFR (Non-Af Amer) 103.3 BUN/Creatinine Ratio 7.2 L Glucose 183 H Calcium 8.6 Medications Administered Current Inpatient Medications Acetaminophen (Tylenol) 650 mg PO Q4H PRN PRN Reason: pain/fever Stop: 11/12/18 18:20 Alprazolam (Xanax) 0.5 mg PO Q8H PRN PRN Reason: Anxiety/Agitation Stop: 11/18/18 14:32 Lipase/Protease/Amylase (Pancreaze (Lipase 4200u)) 3 cap PO TIDM JUANA Stop: 11/18/18 08:59 Last Admin: 10/19/18 13:16 Dose: 3 cap Documented by: Dronabinol (Marinol) 5 mg PO BID JUANA Stop: 11/18/18 08:59 Last Admin: 10/19/18 10:10 Dose: 5 mg Documented by: Fentanyl (Duragesic) 12 mcg TD Q3D JUANA Stop: 11/01/18 09:29 Last Admin: 10/18/18 10:16 Dose: 12 mcg Documented by: Heparin Sodium (Porcine) (Heparin Sod 100 Unit/Ml Flush) 5 ml FLUSH PRN PRN PRN Reason: Flush Stop: 11/13/18 00:14 Last Admin: 10/16/18 11:56 Dose: 5 ml Documented by: Promethazine HCl 12.5 mg/ (Sodium Chloride) 50.5 mls @ 202 mls/hr IV Q4H PRN PRN Reason: Nausea And Vomiting Stop: 11/13/18 04:02 Last Infusion: 10/18/18 21:01 Dose: Infused Documented by: Magnesium Hydroxide (Milk Of Magnesia) 30 ml PO Q6H PRN PRN Reason: Constipation Stop: 11/12/18 18:20 Miscellaneous (Fentanyl Patch Remove & Waste) 1 ea N/A Q3D JUANA Stop: 11/20/18 09:24 Miscellaneous (Fentanyl Patch Check Placement) 1 ea N/A QS [facility] Stop: 11/17/18 15:59 Last Admin: 10/19/18 09:05 Dose: 1 ea Documented by: Miscellaneous (Order Awaiting Action) 1 ea N/A QS [facility] Stop: 11/18/18 15:59 Last Admin: 10/19/18 10:03 Dose: Not Given Documented by: Morphine Sulfate (Morphine Sulfate) 1 mg IV Q4H PRN PRN Reason: Pain Stop: 10/27/18 18:20 Last Admin: 10/17/18 22:30 Dose: 1 mg Documented by: Non-Formulary Medication (Movantik) 25 mg PO ONCE [facility] Stop: 11/18/18 10:14 Pantoprazole Sodium (Protonix) 40 mg PO BID [facility] Stop: 11/18/18 08:59 Last Admin: 10/19/18 09:04 Dose: 40 mg Documented by: Prochlorperazine (Compazine) 10 mg PO Q6 PRN PRN Reason: Nausea Stop: 11/18/18 07:11 Last Admin: 10/19/18 09:04 Dose: 10 mg Documented by: (1) Constipation Constipation type: unspecified constipation type Qualified Code(s): K59.00 - Constipation, unspecified
[2018-10-19] MEDS: MoRPHine SULFATE 2 MG/ML CARP IV PRN (20:44)
[2018-10-20] MEDS: ALPRAZolam 0.5 MG TABLET PO PRN ×2 (00:21→08:27)
[2018-10-20] MEDS: CHECK FENTANYL PATCH PLACEMENT SCH ×2 (00:22→08:26)
[2018-10-20] MEDS: MoRPHine SULFATE 2 MG/ML CARP IV PRN (02:59)
[2018-10-20] MEDS: HEPARIN 100 UNIT/ML 5ML FLUSH FLUSH PRN (03:01)
[2018-10-20] MEDS: PANTOprazole 40 MG TAB PO SCH (08:24)
[2018-10-20] MEDS: fentaNYL 12 MCG/HR TDSY TD SCH (08:25)
[2018-10-20] MEDS: PANCREAZE (LIPASE 4,200U) CAP PO SCH (08:25)
[2018-10-20] MEDS: DRONABINOL 2.5 MG CAP PO SCH (08:25)
--- NOTE | 2018-10-20 12:42 | Gastroenterology Progress Note ---
Date of Service October 20, 2018 Pt tico mccoy. OK for d/c. Please d/c on Reglan 5 BID x 2 weeks. Please check Mag level before d/c, given conern for re-feeding. Physical Exam Vital Signs (Past 24 Hours): Last Vital Signs Temp 36.7 C 10/20/18 11:44 Pulse 65 10/20/18 11:44 Resp 18 10/20/18 11:44 BP 94/53 L 10/20/18 11:44 Pulse Ox 98 10/20/18 11:44
--- NOTE | 2018-10-20 17:23 | Discharge Summary ---
Date of Service October 20, 2018 Admission HPI Per Admitting Provider 73 y/o M c/o abd pain, n/v. Pt states he had a chemo tx daily on Saturday, Saturday, and Saturday. He states that over the last several days he has had ongoing n/v. He has not been able to eat anything for about 3 days. His PO intake has been low prior to this and he has lost a lot of weight. He has ongoing abd pain in the epigastric and RUQ. Pt denies fever, SOB, chest pain, c/d, LE pain or swelling. ED spoke with Dr. Arrington who follows with pt as outpt. He is planning surgical intervention tomorrow for gastric outlet obstruction. Admission Exam Per Admitting Provider Constitutional: WD/WN, vitals as above Eyes: normal visual rosales by confrontation and + anicteric sclerae Neck: normal visual inspection and trachea midline Respiratory: normal respiratory effort, lungs clear to auscultation Cardiovascular: Rate/Rhythm: regular rate and regular rhythm Gastrointestinal (Abdomen): Inspection/Auscultation: abdomen not distended Percussion/Palpation: + abdomen tender (RUQ and R lateral ) and abdomen soft Musculoskeletal: Head/Neck/Chest: normocephalic and head atraumatic negative for edema, peripheral pulses intact Skin: no rashes, warm and dry Neurologic: awake; not confused Speech / Cognition: normal speech Psychiatric: Orientation: oriented x 3 Eye Contact: good eye contact Affect: + irritable affect Principal Diagnosis Gastric outlet obstruction Discharge Exam Constitutional well developed, + ill appearing and + thin Eyes PERRL, conjunctivae normal, anicteric sclerae ENMT external ear and nose normal, oropharynx normal Neck trachea midline, no thyromegaly Respiratory normal respiratory effort, lungs clear to auscultation Cardiovascular RRR, no murmur, no edema Gastrointestinal (Abdomen) normal bowel sounds, soft, nontender, no hepatosplenomegaly Musculoskeletal no cyanosis or clubbing, extremities motor strength 5/5 Skin no rashes, warm and dry Neurologic patellar DTR's 2+ bilat, sensation intact and PERRL, EOMI, accommodation nl, no face palsy, no dysarthria Psychiatric A+Ox3, euthymic affect Lymphatic no cervical or axillary lymphadenopathy Discharge Data Allergies Allergy/AdvReac Type Severity Reaction Status Date / Time iodine Allergy Severe THROAT Verified 10/20/18 23:07 SWELLING, HIVES shellfish derived Allergy Severe ANAPHYLACTIC Verified 10/20/18 23:07 SHOCK, HIVES,SWELLING apple Allergy Intermediate HIVES Verified 10/20/18 23:07 neal Allergy Intermediate HIVES Verified 10/20/18 23:07 peach Allergy Intermediate HIVES Verified 10/20/18 23:07 codeine Allergy Unknown Unverified 10/20/18 23:07 oxycodone AdvReac Unknown FEEL GOOFY Verified 10/20/18 23:07 Consultations 10/13/18 15:46 ED Decision to Admit Stat 10/13/18 15:47 Consult Gastroenterology Stat 10/13/18 18:21 Consult Case Management - Discharge Planning Routine Consult Gastroenterology Routine Procedures Performed Operation Date: 10/16/18 13:00 Actual Procedures p Esophagogastroduodenoscopy with Duodenal Stent(Not Applicable) - Sumeet Miranda Ordered Studies 10/13/18 13:05 CT abd pelvis IV con only Stat 10/16/18 13:00 FL esophageal dilatation Routine Hospital Course (1) Gastric outlet obstruction: due to pancreatic tumor encroaching duodenum stent placed in duodenum on 10/16, tolerated well advancing diet slowly, up to full pureed diet on day of discharge plan for pureed diet until 10/23 and can then advance to soft bite sized provided with packed with details for diet abdominal pain improved with Fentanyl patch d/c to home, follow up with gastroenterology (2) Primary adenocarcinoma of body of pancreas: currently getting chemotherapy has lost a lot of weight and muscle mass hopefully the duodenal stent will help improve intake will follow up with oncology for further chemotherapy on tuesday 10/24 (3) Constipation: difficult to resolve, required an enema a few days ago will use Movantik, given samples by his PCP, helped at home use Miralax BID at home and Movantik as needed encouraged to stay well hydrated and stay active (4) Hypokalemia: resolved (5) GERD (gastroesophageal reflux disease): Protonix (6) Depression: resume home medications mood is stable currently (7) Anxiety: d/c Ativan IV resume Xanax 0.5mg PO q8 PRN, anxiety controlled (8) BPH (benign prostatic hyperplasia): resume home meds urinating okay (9) Severe protein-calorie malnutrition: Patient has a normal BMI, but has been losing weight. pureed diet and then advance hopeful that duodenal stent will continue to relieve obstruction and allow him to eat (10) Abnormal acid-base balance: resolved, was likely from starvation, vomiting (11) DVT prophylaxis: SCDs Total Time Total Time Spent Total Time Spent (In Minutes): 35 minutes Total Time Includes: Examination of the Patient, Discharge Planning, Medication Reconciliation and Communication With Other Providers (Dr. Arrington, Dr. Hammonds) Discharge Plan Discharge Items Patient Disposition: Home - Home Health Services Reason For Visit: GASTRIC OUTLET OBSTRUCTION Discharge Diagnosis: Gastric outlet obstruction Pancreatic cancer Condition: Good Discharge Goals: Improve function and Improve nutritional status Activity: Resume your previous activity Driving/Machine Use Comment: no driving due to Fentanyl patch Non-emergency contact: Primary Care Provider, Wire Turning Machine Operator and Oncologist Call non-emergency contact if: you have any medication questions, your symptoms worsen, your pain is not controlled and you have a fever Follow-up/Referrals: Jw De La Torre [Primary Care Provider] - 10/27/18 11:00 am (Please, follow up with Dr. De La Torre on SaturdayOctober 27 at 11:00 am. *If you need to change this appointment, call the office at [phone].) Diet: Regular Diet Texture: Pureed (blended smooth) Addtl Provider Instructions: Medications: new prescriptions provided - REGLAN: 5mg twice a day for two weeks to promote gastric emptying Gastric outlet obstruction: treated with stent to your duodenum per gastroenterology, you should follow a pureed diet until after that, you can advance to soft, bite sized food please refer to packet on information about how to eat (small, frequent meals) see foods to avoid please call [facility] gastroenterology if you have any issues Pancreatic cancer: follow up with oncologist as previously scheduled I discussed with Dr. Hammonds, he said that you should come for chemotherapy on Saturday as scheduled Prescriptions: New hydrocodone-acetaminophen [[place]] 5-325 mg tablet 1 tab PO Q4H PRN (Reason: Pain, Severe) Qty: 20 RF: 0 ondansetron HCl 8 mg tablet 8 mg PO DIRECTED PRN (Reason: Nausea) Qty: 20 RF: 0 alprazolam [Xanax] 0.5 mg tablet 0.5 mg PO Q8H PRN (Reason: anxiety) Qty: 20 RF: 0 Protonix [address] for susp in packet 40 mg PO BID 30 Days Qty: 60 RF: 0 Creon 12,000-38,000 -60,000 unit capsule,delayed release(DR/EC) 12,000 units PO TID 30 Days Qty: 90 RF: 0 fentanyl 25 mcg/hr patch 72 hour 1 patch topical Q72H 30 Days Qty: 10 RF: 0 metoclopramide HCl [Reglan] 5 mg tablet 5 mg PO BID 14 Days Qty: 28 RF: 0 Continued dronabinol [Marinol] 5 mg capsule 5 mg PO BID RF: 0 desvenlafaxine succinate [Pristiq] 25 mg Tablet Extended Release 24 Hr 25 mg PO HS Qty: 0 RF: 0 docusate sodium 100 mg Capsule 100 mg PO DAILY PRN (Reason: Constipation) RF: 0 Marijuana 1 dose Inhalation UD PRN (Reason: PRN) RF: 0 prochlorperazine maleate 10 mg tablet 10 mg PO Q6 PRN (Reason: Nausea) RF: 0 Stand-Alone Forms: [facility] Discharge Orders: Discharge Order (Routine); Ordered 10/20/18 Ordered By: Amilcar Telles Admission Data Admit Date/Time: 10/13/18 16:43 Attending Provider: Amilcar Telles Admit Provider: Zeinab Mckinney Primary Care Provider: Jw De La Torre Other Providers: Hal Arrington ; Home,Nursing Agency ; Zeinab Mckinney Service: Oncology Other Interventions: Discharge Summary Assessment (RN) Last Done: 10/20/18 13:57 DC Date/Time DO NOT enter until pt leaves facility: 10/20/18 14:42
[2018-10-20] MEDS ORDERED: DRONABINOL 2.5 MG CAP PO SCH (21:00)
== END 2018-10-20 14:42 | disposition home health service (06) | DRG 380 ==
LOC: ED 12:16 → 4E 16:43 → SUATTDRO 16:43 → 4E 17:51
DX: Z88.5 Allergy status to narcotic agent; F41.9 Anxiety disorder, unspecified; F32.9 Major depressive disorder, single episode, unspecified; E43 Unspecified severe protein-calorie malnutrition; E87.6 Hypokalemia; K31.1 Adult hypertrophic pyloric stenosis; C25.1 Malignant neoplasm of body of pancreas; E86.0 Dehydration; Z79.899 Other long term (current) drug therapy; K31.5 Obstruction of duodenum; E87.4 Mixed disorder of acid-base balance; K59.00 Constipation, unspecified; K21.9 Gastro-esophageal reflux disease without esophagitis